=== PATIENT | male | born 1995 | race Caucasian/White ===

== ENCOUNTER 2016-12-14 01:22 | Observation (INO) | payer BC ==
[2016-12-14 01:22] VITALS: BMI 23.6
[2016-12-14 01:55] VITALS: RESP 18; TEMP 97.8
--- NOTE | 2016-12-14 02:55 | ED PDOC ---
Arrival/HPI - General Chief Complaint: Substance Abuse Time Seen by Provider: 12/14/16 02:05 Historian: Patient - History of Present Illness Narrative History of Present Illness (Text): 12/14/16 02:51 Juan Gordillo is a 21 year old male who was brought in to the emergency department via EMS for public intoxication. Patient admits to alcohol use as well as occasional drug use. Currently patient states he feels fine and wants to rest. Time/Duration: 4-6 hours Symptom Onset: Gradual Symptom Course: Unchanged Severity Level: Mild Activities at Onset: Light Context: Street Past Medical History - Provider Review Nursing Documentation Reviewed: Yes - Infectious Disease Hx of Infectious Diseases: None - Pulmonary Hx Asthma: Yes - Psychiatric Hx Anxiety: Yes Hx Substance Use: Yes - Anesthesia Hx Anesthesia: No - Suicidal Assessment Feels Threatened In Home Enviroment: No Family/Social History - Physician Review Nursing Documentation Reviewed: Yes Family/Social History: No Known Family HX Smoking Status: Heavy Smoker > 10 Cigarettes Daily Hx Alcohol Use: Yes Hx Substance Use: Yes Substance used: Heroin, pot, Benzo Allergies/Home Meds Allergies/Adverse Reactions: Allergies banana Allergy (Verified 09/01/16 13:18) RASH fruits Allergy (Uncoded 09/29/16 16:32) Home Medications: Home Meds Medication Instructions Recorded Confirmed Alprazolam [Xanax] 1 mg PO TID PRN 11/23/14 11/23/14 Fluticasone Propionate [Flovent 1 puff INH PRN PRN 11/23/14 11/23/14 Hfa] Fluticasone/Salmeterol 250/50 1 puff PO DAILY 11/23/14 11/23/14 [Advair Diskus 250/50] QUEtiapine [SEROquel] 50 mg PO HS 11/23/14 11/23/14 ALPRAZolam [Xanax] 1 mg PO TID 09/29/16 09/29/16 Review of Systems - Review of Systems Systems not reviewed;Unavailable: Intoxicated Physical Exam Vital Signs Reviewed: Yes Vital Signs Temp Pulse Resp BP Pulse Ox 12/14/16 06:02 88 18 124/72 98 12/14/16 01:54 97.8 F 106 H 18 129/79 95 Temperature: Afebrile Blood Pressure: Normal Pulse: Tachycardic Respiratory Rate: Normal Appearance: Positive for: Well-Appearing, Non-Toxic, Comfortable Pain Distress: None Mental Status: Positive for: other (Sleeping but easily arousable. ) - Systems Exam Head: Present: Atraumatic, Normocephalic Pupils: Present: PERRL Extroacular Muscles: Present: EOMI Conjunctiva: Present: Normal Neck: Present: Normal Range of Motion. No: MIDLINE TENDERNESS, Paraspinal Tenderness Respiratory/Chest: Present: Clear to Auscultation, Good Air Exchange. No: Respiratory Distress, Accessory Muscle Use Cardiovascular: Present: Regular Rate and Rhythm, Normal S1, S2. No: Murmurs Abdomen: Present: Normal Bowel Sounds. No: Tenderness, Distention, Peritoneal Signs, Rebound, Guarding Upper Extremity: Present: Normal Inspection, Normal ROM, NORMAL PULSES. No: Cyanosis, Edema Lower Extremity: Present: Normal Inspection, NORMAL PULSES, Normal ROM. No: Edema, CALF TENDERNESS, Tenderness, Swelling Neurological: Present: GCS=15, CN II-XII Intact, Speech Normal Skin: Present: Warm, Dry, Normal Color. No: Rashes Psychiatric: Present: Alert, Oriented x 3, Intoxicated Medical Decision Making ED Course and Treatment: 12/14/16 03:00 Impression: A 21 year old male who presents to the emergency department complaining for public intoxication. Progress Notes: ED OBSERVATION Discharge: Yes Date of observation admission: 12/14/16 Time of observation admission: 02:00 - Observation admission statement Patient is being placed in observation because:: public intoxication - Goals of Observation Goals of observation are:: awaiting sobriety. - Progress Note Progress Note: 12/14/16 04:00 Patient sleeping comfortably with stable vitals signs. 12/14/16 05:58 Patient is resting with no new complaints. Vital signs stable. 12/14/16 06:05 Patient is alert oriented X3 and ambulatory with a steady gait in the emergency department. Patient is stable for discharge. - Scribe Statement The provider has reviewed the documentation as recorded by the Sarabjit Guerrero Provider Attestation: All medical record entries made by the Zainaibtom were at my direction and personally dictated by me. I have reviewed the chart and agree that the record accurately reflects my personal performance of the history, physical exam, medical decision making, and the department course for this patient. I have also personally directed, reviewed, and agree with the discharge instructions and disposition. Disposition/Present on Arrival - Present on Arrival Any Indicators Present on Arrival: No History of DVT/PE: No History of Uncontrolled Diabetes: No Urinary Catheter: No History of Decub. Ulcer: No History Surgical Site Infection Following: None - Disposition Have Diagnosis and Disposition been Completed?: Yes Diagnosis: Alcohol abuse Disposition: HOME/ ROUTINE Disposition Time: 06:04 Patient Plan: Discharge Patient Problems: Current Active Problems Problem Status Diagnosed Alcohol abuse Acute Condition: GOOD
[2016-12-14 06:03] VITALS: BP 124/72; PULSE 88; O2SAT 98
== END 2016-12-14 06:03 | disposition home or self-care (01) ==
LOC: ED 01:22 → EROBSV 02:00
PROVIDERS: ADMIT Emergency Medicine; ATTEND Emergency Medicine
DX: F10.10 Alcohol abuse, uncomplicated (principal); Y90.9 Presence of alcohol in blood, level not specified
CPT/HCPCS: 99283; G0378

== ENCOUNTER 2017-11-05 09:10 | Inpatient (IN) | payer BC ==
[2017-11-05 09:10] VITALS: BMI 23.6
[2017-11-05] MEDS ORDERED: Naloxone 0.4 mg/ml Inj (Adult) ONE ×2 (09:12→10:50)
[2017-11-05] MEDS ORDERED: Naloxone 0.4 mg/ml Inj (Adult) IVP STA ×4 (09:15→10:41)
--- NOTE | 2017-11-05 09:21 | ED PDOC ---
Arrival/HPI - General Chief Complaint: Altered Mental Status Time Seen by Provider: 11/05/17 09:16 Historian: EMS, Other (Girlfriend) - History of Present Illness Narrative History of Present Illness (Text): 11/05/17 09:16 Patient is a 22 year old male brought in by EMS for possible overdose prior to arrival. Patient's history initially obtained from [facility] personnel and patient' s girlfriend. Patient reportedly "was found" in a parking lot sitting in a parked car unresponsive. Girlfriend states that "earlier in the morning he was fine." The girlfriend states that patient "took 2 pills" and then she noted he was becoming unresponsive in the passenger seat. Girlfriend believes he was recently prescribed Xanax. She states in the past patient used heroin although uncertain if he used it today. HPI and ROS limited due to unresponsive state of patient. 11/05/17 10:36 Time/Duration: Prior to Arrival Symptom Course: Unchanged Activities at Onset: Light Context: Passenger Past Medical History - Provider Review Nursing Documentation Reviewed: Yes - Infectious Disease Hx of Infectious Diseases: None - Pulmonary Hx Asthma: Yes - Psychiatric Hx Anxiety: Yes Hx Depression: Yes Hx Substance Use: Yes - Anesthesia Hx Anesthesia: No Hx Anesthesia Reactions: No Hx Malignant Hyperthermia: No - Suicidal Assessment Feels Threatened In Home Enviroment: No Family/Social History - Physician Review Nursing Documentation Reviewed: Yes Family/Social History: No Known Family HX Smoking Status: Heavy Smoker > 10 Cigarettes Daily Hx Alcohol Use: Yes Hx Substance Use: Yes Substance used: Heroin, pot, Benzo Allergies/Home Meds Allergies/Adverse Reactions: Allergies banana Allergy (Verified 09/01/16 13:18) RASH fruits Allergy (Uncoded 09/29/16 16:32) Home Medications: Home Meds Medication Instructions Recorded Confirmed Alprazolam [Xanax] 1 mg PO TID PRN 11/23/14 11/05/17 QUEtiapine [SEROquel] 50 mg PO HS 11/23/14 11/05/17 ALPRAZolam [Xanax] 1 mg PO TID 09/29/16 11/05/17 Review of Systems - Review of Systems Systems not reviewed;Unavailable: Other (Unresponsive) Physical Exam - Physical Exam Narrative Physical Exam (Text): 11/05/17 10:32 Head: Atraumatic. Normocephalic. Eyes: Pinpoint pupils, reactive. ENT: Mucous membranes are moist and intact. Oropharynx is without edema or erythema. There are increased oral secretions which were clear when suctioned. Neck: Supple. Atraumatic. NO soft tissue swelling. Cardiovascular: Tachycardic. Systolic murmur. Pulmonary/Chest: Rhonchi, slow respirations on initial evaluation. Superfical linear abrasion to chest wall, no crepitus or edema or erythema. Abdominal: Soft and non-distended. There is no tenderness. No rebound, guarding, or rigidity. No organomegaly. Good bowel sounds. Back: No visible trauma. No midline pain. Extremities: No edema. No cyanosis. No clubbing. Full range of motion in all extremities. No calf tenderness. Rectal: no bleeding or melena Skin: Skin is warm and dry. No petechiae. No purpura. No cyanosis. Neurological: On initial exam patient is lethargic, will withdraw to painful stimuli and move all four extremities. Will open eyes to painful stimuli only, not verbal stimuli. Reflexes depressed. Psychiatric: Unresponsive on initial exam. Vital Signs Reviewed: Yes Vital Signs Temp Pulse Resp BP Pulse Ox 11/05/17 11:41 128 H 19 95/60 L 99 11/05/17 10:42 126 H 14 93/61 L 100 11/05/17 10:10 131 H 21 98/71 L 99 11/05/17 09:35 130 H 18 106/63 100 11/05/17 09:10 98.5 F 134 H 20 148/81 100 Temperature: Afebrile Blood Pressure: Normal Pulse: Tachycardic Respiratory Rate: Other (slow respirations) Medical Decision Making ED Course and Treatment: 11/05/17 09:38 Impression: 22 year old male presented to the Emergency department for possible overdose. Plan: -- EKG -- Labs -- Chest X-ray -- Narcan -- Urinalysis -- Reassess and disposition Prior Visits: Notes and results from previous visits were reviewed. Pt was seen in the Emergency department on 12/14/16 for public intoxication and was discharged home. Pt was seen in the Emergency department on 09/01/16 for drug abuse and discharged home after improvement. Progress Notes: Patient seen immediately upon arrival to Emergency department. History obtained from EMS as well as stated girlfriend. Patient received intranasal narcan with some response as per EMS. Patient was reportedly initially found unresponsive and near apneic, had improved respirations and oxygen saturations by report after intranasal narcan given prior to arrival to Emergency department. On initial evaluation in the Emergency department, patient is noted to be unresponsive to painful stimuli, pupils pinpoint. No visible signs of acute trauma. Respiratory rate 10. As there is persistent respiratory distress, patient suctioned, IV narcan 0.8 mg iv given with immediate response, patient sat up, attempted to pull out iv and get out of bed. For patient safety, he was restrained as he was not following commands and patient required further monitoring and evaluation of respiratory status and further treatment for respiratory distress, as well as further evaluation of ams, at this time felt likely due to overdose. 11/05/17 09:39 Patient at 0950 not responding to verbal stimuli, and now can only be aroused with sternal rub. As he has now worsening respiratory status, additional narcan ordered. On oxygen saturations 98%. Case d/w Dr. Khan, glass technologist, accepts admission to ICU. 11/05/17 10:53 Chest X-ray reviewed by radiologist, shows no active pulmonary disease. 11/05/17 10:53 CT of head reviewed by radiologist, shows no acute findings. 11/05/17 11:46 Patient re-evaluated, is arousable with verbal stimuli, is now able to ask questions "where is my girlfriend" and moves all extremities well. Patient with no PMD, have discussed case with oncall physician Dr. Berger who accepts patient to her service. Care turned over to ICU team. Abnormal findings reviewed with patient. Patient requires serial exams on Narcan drip, and close monitoring of respiratory status. Leukocytosis noted but afebrile in ED. Initial CXR reading by radiology reviewed, however will cover patient with antibiotics given period of unresponsiveness noted prior to arrival. - Critical Care Critical Care Minutes: 60 minutes - Lab Interpretations Lab Results: 11/05/17 09:10 11/05/17 09:10 Lab Results 11/05/17 09:10: Alcohol, Quantitative < 10 11/05/17 09:10: Salicylates < 1 L, Acetaminophen < 10.0 L 11/05/17 09:10: PT 10.9, INR 0.95, APTT 26.9 11/05/17 09:10: WBC 15.4 H, RBC 4.91, Hgb 13.7 L, Hct 43.0, MCV 87.6, MCH 27.9, MCHC 31.9, RDW 15.1 H, Plt Count 267, MPV 9.7, Gran % 74.4 H, Lymph % (Auto) 16.9 L, [place] % (Auto) 7.1 H, Eos % (Auto) 1.2 L, Baso % (Auto) 0.4, Gran # 11.49 H, Lymph # (Auto) 2.6, [place] # (Auto) 1.1 H, Eos # (Auto) 0.2, Baso # (Auto ) 0.06 11/05/17 09:10: Sodium 144, Potassium 4.7, Chloride 101, Carbon Dioxide 24, Anion Gap 24 H, BUN 16, Creatinine 2.5 H, Est GFR ( Amer) 39, Est GFR ( Non-Af Amer) 32, Random Glucose 232 H, Calcium 8.6, Total Bilirubin 0.2, AST 43 , ALT 50, Alkaline Phosphatase 79, Lactate Dehydrogenase 697, Total Creatine Kinase 309 H, CK-MB (CK-2) 1.9, CK-MB (CK-2) % Cancelled, Troponin I 0.01, Total Protein 7.6, Albumin 4.4, Globulin 3.3, Albumin/Globulin Ratio 1.3 - RAD Interpretation Radiology Orders: 11/05/17 09:20 CHEST PORTABLE [RAD] Stat Manager Control: Radiologist - EKG Interpretation EKG Interpretation (Text): EKG at 0919 sinus tachycardia rate of 144 Interpreted by ED Physician: Yes Type: 12 lead EKG - Medication Orders Current Medication Orders: Acetaminophen (Tylenol 650mg/20.3ml Solution Ud) 650 mg NG Q6H PRN PRN Reason: Fever >100.4 F Last Admin: 11/06/17 03:00 Dose: 650 mg HARRIS Pain/Vitals Document 11/06/17 03:00 AOM (Rec: 11/06/17 03:11 AOM ADMIN-PC) Pain Reassessment Is This A Pain ReAssessment? No Sleep Is patient sleeping during reassessment? Yes Re-Assess: HARRIS Pain/Vitals Document 11/06/17 04:00 AOM (Rec: 11/06/17 04:26 [id number] Pain Reassessment Is This A Pain ReAssessment? No Sleep Is patient sleeping during reassessment? Yes Albuterol/Ipratropium (Duoneb 3 Mg/0.5 Mg (3 Ml) Ud) 3 ml IH [id number] INDIGO Last Admin: 11/06/17 07:04 Dose: 3 ml Heparin Sodium (Porcine) (Heparin) 5,000 units SC Q8 INDIGO PRN Reason: Protocol Last Admin: 11/06/17 06:07 Dose: 5,000 units Subcutaneous Administrations Document 11/06/17 06:07 AOM (Rec: 11/06/17 06:08 AOM ADMIN-PC) Injection Site MAR Injection Site Left Arm Charges for Administration # of Subcutaneous Administrations 1 Sodium Chloride (Sodium Chloride 0.9%) 1,000 mls @ 125 mls/hr IV .Q8H [facility] Last Admin: 11/06/17 03:45 Dose: 125 mls/hr eMAR Start Stop Document 11/06/17 03:45 AOM (Rec: 11/06/17 04:13 [id number] Intravenous Solution Start Date 11/06/17 Start Time 03:45 End Date 11/06/17 Doxycycline Hyclate 100 mg/ (Sodium Chloride) 100 mls @ 100 mls/hr IVPB Q12 INDIGO PRN Reason: Protocol Propofol (Diprivan) 1,000 mg in 100 mls @ 2.654 mls/hr IV .Q24H PRN; Protocol; 5 MCG/KG/MIN PRN Reason: TITRATE PER MD ORDER Last Titration: 11/06/17 06:52 Dose: 35 mcg/kg/min, 18.575 mls/hr Chow Agitation Sedation Document 11/06/17 06:52 AOM (Rec: 11/06/17 06:53 AOM ADMIN-PC) Chow Agitation Sedation Scale Chow Agitation Sedation Scale Score -2 Light Sedation: briefly awakens with eye contact to voice (<10 sec) Titration Intervention Document 11/06/17 06:52 AOM (Rec: 11/06/17 06:53 AOM ADMIN-PC) Titration Intake Titration Intake 25 Cumulative Intake 25 Cumulative Intake (Rx) 100.9 Waste Amount 0 Container Volume 75 Titration Dosing Titration Dose 35 IV Rate 18.575 Intake/Decrease Increased Cumulative Dose 1009 Vancomycin HCl (Vancomycin 1gm) 1 gm in 250 mls @ 167 mls/hr IVPB Q12H INDIGO PRN Reason: Protocol Last Admin: 11/06/17 08:13 Dose: 167 mls/hr eMAR Start Stop Document 11/06/17 08:13 PHANT (Rec: 11/06/17 08:13 PHANT [id number]) Intravenous Solution Start Date 11/06/17 Start Time 08:13 End Date 11/06/17 End time 09:43 Total Infusion Time 90 Pantoprazole Sodium (Protonix Inj) 40 mg IVP DAILY INDIGO Discontinued Medications Acetaminophen (Tylenol 160mg/5ml Oral Soln) 650 mg NG Q6H PRN PRN Reason: Fever >100.4 F Albuterol/Ipratropium (Duoneb 3 Mg/0.5 Mg (3 Ml) Ud) 3 ml IH STAT STA Stop: 11/05/17 09:35 Last Admin: 11/05/17 10:04 Dose: 3 ml Etomidate (Amidate) 20 mg IVP STAT STA Stop: 11/06/17 01:46 Sodium Chloride (Sodium Chloride 0.9%) 500 mls @ 1,000 mls/hr IV .Q30M STA Stop: 11/05/17 10:03 Last Admin: 11/05/17 10:03 Dose: 1,000 mls/hr eMAR Start Stop Document 11/05/17 10:03 SRE (Rec: 11/05/17 10:03 SRE [id number]) Intravenous Solution Start Date 11/05/17 Start Time 09:35 End Date 11/05/17 End time 10:05 Total Infusion Time 30 Ceftriaxone Sodium (Rocephin 1 Gram Ivpb) 1 gm in 100 mls @ 200 mls/hr IVPB ONCE STA PRN Reason: Protocol Stop: 11/05/17 10:07 Last Admin: 11/05/17 10:04 Dose: 200 mls/hr eMAR Start Stop Document 11/05/17 10:04 SRE (Rec: 11/05/17 10:07 SRE [id number]) Intravenous Solution Start Date 11/05/17 Start Time 09:45 End Date 11/05/17 End time 10:45 Total Infusion Time 60 Sodium Chloride (Sodium Chloride 0.9%) 1,000 mls @ 1,000 mls/hr IV .Q1H STA Stop: 11/05/17 10:50 Last Admin: 11/05/17 10:01 Dose: 1,000 mls/hr eMAR Start Stop Document 11/05/17 10:01 SRE (Rec: 11/05/17 10:03 SRE [id number]) Intravenous Solution Start Date 11/05/17 Start Time 10:00 End Date 11/05/17 End time 11:00 Total Infusion Time 60 Naloxone HCl 2.4 mg/ Sodium (Chloride) 246 mls @ 61.5 mls/hr IV .Q4H ONE PRN Reason: 0.6 MG/HR Stop: 11/05/17 14:56 Naloxone HCl 2.4 mg/ Sodium (Chloride) 250 mls @ 62.5 mls/hr IV .Q4H ONE PRN Reason: 0.6 MG/HR Stop: 11/05/17 14:56 Last Admin: 11/05/17 11:26 Dose: 62.5 mls/hr eMAR Start Stop Document 11/05/17 11:26 SRE (Rec: 11/05/17 11:26 SRE [id number]) Intravenous Solution Start Date 11/05/17 Start Time 11:26 Doxycycline Hyclate 200 mg/ (Sodium Chloride) 100 mls @ 100 mls/hr IVPB ONCE ONE PRN Reason: Protocol Stop: 11/05/17 23:59 Piperacillin Sod/Tazobactam Sod (Zosyn 3.375 In Ns 100ml) 100 mls @ 200 mls/hr IVPB Q6 INDIGO PRN Reason: Protocol Stop: 11/06/17 06:29 Last Admin: 11/06/17 05:51 Dose: 200 mls/hr eMAR Start Stop Document 11/06/17 05:51 AOM (Rec: 11/06/17 05:52 AOM ADMIN-PC) Intravenous Solution Start Date 11/06/17 Start Time 05:51 End Date 11/06/17 End time 06:21 Total Infusion Time 30 Doxycycline Hyclate 200 mg/ (Sodium Chloride) 250 mls @ 100 mls/hr IVPB ONCE ONE PRN Reason: Protocol Stop: 11/06/17 01:29 Last Admin: 11/05/17 23:28 Dose: 100 mls/hr eMAR Start Stop Document 11/05/17 23:28 AOM (Rec: 11/05/17 23:30 AOM ADMIN-PC) Intravenous Solution Start Date 11/05/17 Start Time 23:29 End Date 11/06/17 End time 01:59 Total Infusion Time 150 Vancomycin HCl (Vancomycin 1gm) 1 gm in 250 mls @ 167 mls/hr IVPB STAT STA PRN Reason: Protocol Stop: 11/06/17 03:14 Last Admin: 11/06/17 03:00 Dose: 167 mls/hr eMAR Start Stop Document 11/06/17 03:00 AOM (Rec: 11/06/17 03:07 AOM ADMIN-PC) Intravenous Solution Start Date 11/06/17 Start Time 03:00 End Date 11/06/17 Lorazepam (Ativan) 2 mg IVP ONCE ONE PRN Reason: Protocol Stop: 11/06/17 01:46 Naloxone HCl (Narcan) 0.8 mg IVP STAT STA Stop: 11/05/17 09:16 Last Admin: 11/05/17 09:15 Dose: 0.8 mg IVP Administration Document 11/05/17 09:15 SRE (Rec: 11/05/17 10:00 SRE [id number]) Charges for Administration # of IVP Administrations 1 Naloxone HCl (Narcan) 1 mg IVP STAT STA Stop: 11/05/17 09:54 Last Admin: 11/05/17 10:07 Dose: 1 mg IVP Administration Document 11/05/17 10:07 SRE (Rec: 11/05/17 10:07 SRE [id number]) Charges for Administration # of IVP Administrations 1 Naloxone HCl (Narcan) 2 mg IVP STAT STA Stop: 11/05/17 10:42 Last Admin: 11/05/17 10:55 Dose: 1.3 mg IVP Administration Document 11/05/17 10:55 SRE (Rec: 11/05/17 10:57 SRE [id number]) Charges for Administration # of IVP Administrations 1 Pneumococcal Polyvalent Vaccine (Pneumovax 23 Vaccine) 0.5 ml IM .ONCE ONE Stop: 11/05/17 13:40 Propofol (Diprivan) 50 mg IVP ONCE ONE Stop: 11/06/17 01:31 Last Admin: 11/06/17 01:25 Dose: 50 mg IVP Administration Document 11/06/17 01:25 AOM (Rec: 11/06/17 02:52 AOM ADMIN-PC) Charges for Administration # of IVP Administrations 1 Propofol (Diprivan) 50 mg IVP ONCE ONE Stop: 11/06/17 01:46 Last Admin: 11/06/17 01:25 Dose: 50 mg IVP Administration Document 11/06/17 01:25 AOM (Rec: 11/06/17 02:58 AOM ADMIN-PC) Charges for Administration # of IVP Administrations 1 Quetiapine Fumarate (Seroquel) 50 mg PO HS INDIGO Last Admin: 11/05/17 22:24 Dose: Not Given Non-Admin Reason: Patient Lethargic Behavioural Document 11/05/17 22:24 AOM (Rec: 11/05/17 22:24 AOM ADMIN-PC) Maintenance Maintenance Dose No Nonmedicinal Nonmedicinal Interventions Redirect - Scribe Statement The provider has reviewed the documentation as recorded by the Scribe Debra Mark. All medical record entries made by the Scribe were at my direction and personally dictated by me. I have reviewed the chart and agree that the record accurately reflects my personal performance of the history, physical exam, medical decision making, and the department course for this patient. I have also personally directed, reviewed, and agree with the discharge instructions and disposition. Disposition/Present on Arrival - Present on Arrival Any Indicators Present on Arrival: No History of DVT/PE: No History of Uncontrolled Diabetes: No Urinary Catheter: No History of Decub. Ulcer: No History Surgical Site Infection Following: None - Disposition Have Diagnosis and Disposition been Completed?: Yes Diagnosis: Acute renal failure, Opiate overdose Disposition: HOSPITALIZED Disposition Time: 09:54 Patient Plan: Admission, ICU Patient Problems: Current Active Problems Problem Status Onset Acute renal failure Acute Opiate overdose Acute Condition: CRITICAL
[2017-11-05 09:34] LABS: BASO # 0.06 K/mm3 (0.0-2.0); BASO % 0.4 % (0.0-3.0); EOS # 0.2 (0.0-0.7); EOS % 1.2 % (1.5-5.0); GRAN # 11.49 (1.4-6.5); GRAN % 74.4 % (50.0-68.0); HEMOGLOBIN 13.7 g/dL (14.0-18.0); LYMPH # 2.6 (1.2-3.4); LYMPH % 16.9 % (22.0-35.0); MEAN CELL VOLUME 87.6 fl (80.0-105.0); MEAN CORPUSCULAR HEMOGLOBIN 27.9 pg (25.0-35.0); MEAN CORPUSCULAR HGB CONC 31.9 g/dl (31.0-37.0); MEAN PLATELET VOLUME 9.7 fl (7.0-11.0); MONO # 1.1 (0.1-0.6); MONO % 7.1 % (1.0-6.0); RBC 4.91 10^6/uL (3.5-6.1); RED CELL DISTRIBUTION WIDTH 15.1 % (11.5-14.5); WHITE BLOOD COUNT 15.4 10^3/ul (4.5-11.0)
[2017-11-05] MEDS ORDERED: Albuterol-Ipratrop 3 mg / 0.5 (3 ml) UD IH STA (09:34)
[2017-11-05] MEDS ORDERED: Sodium Chloride 0.9% 500 ML IV STA (09:34)
[2017-11-05] MEDS ORDERED: cefTRIAXone 1 gm 1 GM/100 ML BAG IVPB STA (09:38)
--- NOTE | 2017-11-05 09:39 | RAD ---
HISTORY: overdose COMPARISON: No prior. FINDINGS: LUNGS: No active pulmonary disease. PLEURA: No significant pleural effusion identified, no pneumothorax apparent. CARDIOVASCULAR: Normal. OSSEOUS STRUCTURES: No significant abnormalities. VISUALIZED UPPER ABDOMEN: Normal. OTHER FINDINGS: None. IMPRESSION: No active disease.
[2017-11-05 09:42] LABS: ACETAMINOPHEN < 10.0 ug/ml (10.0-20.0); ALB/GLOB RATIO 1.3 (1.1-1.8); ALBUMIN 4.4 g/dL (3.0-4.8); CALCIUM 8.6 mg/dL (8.4-10.5); SALICYLATE < 1 mg/dL (2.0-20.0)
[2017-11-05 09:46] LABS: INR 0.95 (0.93-1.08); PARTIAL THROMBOPLASTIN TIME 26.9 Seconds (25.1-36.5); PROTHROMBIN TIME 10.9 SECONDS (9.4-12.5)
[2017-11-05] MEDS ORDERED: Sodium Chloride 0.9% 1,000 ML IV STA (09:51)
[2017-11-05 09:53] LABS: TROPONIN I 0.01 ng/mL
[2017-11-05 09:58] LABS: CK-MB 1.9 ng/mL (0.0-3.6)
[2017-11-05 10:17] LABS: URINE BILIRUBIN NEGATIVE (NEGATIVE); URINE BLOOD SMALL (NEGATIVE); URINE GLUCOSE (UA) NEGATIVE (NEGATIVE); URINE LEUKOCYTE ESTERASE NEGATIVE Leu/uL (NEGATIVE); URINE NITRATE NEGATIVE (NEGATIVE); URINE PROTEIN 100 mg/dL (<30 mg/dL); URINE UROBILINOGEN 0.2 E.U./dL (<1 E.U./dL)
[2017-11-05 10:23] LABS: URINE APPEARANCE CLEAR (CLEAR); URINE COLOR YELLOW (YELLOW)
[2017-11-05 10:29] LABS: URINE BACTERIA MANY (NEG); URINE EPITHELIAL CELLS 0 - 2 /hpf (0-5); URINE FINE GRANULAR CAST 0 - 2 /hpf (0-2)
[2017-11-05 10:30] LABS: URINE AMORPHOUS SEDIMENT FEW; URINE HYALINE CAST 0 - 2 /hpf
[2017-11-05 10:34] LABS: BARBITURATES, UR NEGATIVE (NEGATIVE); BENZODIAZEPINES, UR POSITIVE (NEGATIVE); OPIATES, UR POSITIVE (NEGATIVE); PHENCYCLIDINE, UR NEGATIVE (NEGATIVE)
--- NOTE | 2017-11-05 10:51 | CT ---
PROCEDURE: CT HEAD WITHOUT CONTRAST. HISTORY: ams COMPARISON: 11/23/2014 CT TECHNIQUE: Axial computed tomography images were obtained through the head/brain without intravenous contrast. Radiation dose: Total exam DLP = 966 mGy-cm. This CT exam was performed using one or more of the following dose reduction techniques: Automated exposure control, adjustment of the mA and/or kV according to patient size, and/or use of iterative reconstruction technique. FINDINGS: HEMORRHAGE: No intracranial hemorrhage. BRAIN: No mass effect or edema. No atrophy or chronic microvascular ischemic changes. VENTRICLES: Unremarkable. No hydrocephalus. CALVARIUM: Unremarkable. PARANASAL SINUSES: Unremarkable as visualized. No significant inflammatory changes. MASTOID AIR CELLS: Unremarkable as visualized. No inflammatory changes. OTHER FINDINGS: None. IMPRESSION: No acute findings
[2017-11-05] MEDS ORDERED: Naloxone 2.4 MG in Sodium Chloride 0.9% 240 ML IV ONE (10:57)
[2017-11-05] MEDS ORDERED: Naloxone 2.4 MG in Sodium Chloride 0.9% 244 ML IV ONE (11:08)
[2017-11-05] MEDS ORDERED: Pneumococcal 23-Valent Vaccine IM ONE (13:39)
[2017-11-05] MEDS ORDERED: Influenza Vaccine 60 mcg/0.5 mL SYR (4YR UP) IM ONE (13:39)
[2017-11-05 14:28] LABS: BASO # 0.03 K/mm3 (0.0-2.0); BASO % 0.2 % (0.0-3.0); EOS % 0.1 % (1.5-5.0); GRAN # 13.91 (1.4-6.5); GRAN % 79.8 % (50.0-68.0); HEMOGLOBIN 12.5 g/dL (14.0-18.0); LYMPH # 1.7 (1.2-3.4); LYMPH % 9.7 % (22.0-35.0); MEAN CELL VOLUME 86.5 fl (80.0-105.0); MEAN CORPUSCULAR HEMOGLOBIN 27.2 pg (25.0-35.0); MEAN CORPUSCULAR HGB CONC 31.5 g/dl (31.0-37.0); MEAN PLATELET VOLUME 9.7 fl (7.0-11.0); MONO # 1.8 (0.1-0.6); MONO % 10.2 % (1.0-6.0); RBC 4.59 10^6/uL (3.5-6.1); RED CELL DISTRIBUTION WIDTH 15.2 % (11.5-14.5); WHITE BLOOD COUNT 17.4 10^3/ul (4.5-11.0)
[2017-11-05 14:47] LABS: ALB/GLOB RATIO 1.3 (1.1-1.8); ALBUMIN 3.8 g/dL (3.0-4.8); ALT/SGPT 55 U/L (7-56); AST/SGOT 70 U/L (17-59); BLOOD UREA NITROGEN 16 mg/dL (7-21); GFR AFRICAN-AMERICAN > 60; GFR NON-AFRICAN AMERICAN > 60
--- NOTE | 2017-11-05 16:40 | CARD ---
APPROVED REPORT EKG Measurement Heart [id number] <Conclusion> Sinus tachycardia Otherwise normal ECG
[2017-11-05] MEDS: Sodium Chloride 0.9% 1,000 ML IV SCH (19:45)
[2017-11-05] MEDS: Albuterol-Ipratrop 3 mg / 0.5 (3 ml) UD IH SCH (19:52)
[2017-11-05] MEDS ORDERED: SODIUM CHLORIDE 0.9% IVPB ONE (23:00)
[2017-11-05] MEDS ORDERED: DOXYCYCLINE HYCLATE IVPB ONE (23:00)
[2017-11-05 23:03] LABS: ARTERIAL BLOOD GAS HCO3 29.3 mmol/L (21-28); ARTERIAL BLOOD GAS HEMOGLOBIN 12.7 g/dL (11.7-17.4); ARTERIAL BLOOD GAS O2 CAPACITY 17.4 mL/dl (16-24); ARTERIAL BLOOD GAS O2 CONTENT 16.3 ML/dl (15-23); ARTERIAL BLOOD GAS O2 SAT 93.7 % (95-98); ARTERIAL BLOOD GAS PCO2 61 mm/Hg (35-45); ARTERIAL BLOOD GAS PH 7.29 (7.35-7.45); ARTERIAL BLOOD GAS TCO2 31.2 mmol.L (22-28)
[2017-11-05 23:17] LABS: MAGNESIUM 2.1 mg/dL (1.7-2.2)
[2017-11-06] MEDS: Piperacillin/Tazobact 3.375 gm 100 ML IVPB SCH ×2 (00:05→05:51)
--- NOTE | 2017-11-06 00:37 | CON ---
DATE: 11/05/2017 DRILLING CONTRACTOR CONSULTATION NOTE REQUESTING PHYSICIAN: Dr. Berger. 11/05/2017 CHIEF COMPLAINT: Patient presented to the emergency room with altered mental status, basically unresponsive. HISTORY OF PRESENT ILLNESS: Mr. Gordillo is a 22-year-old male who was found by EMS; note that the girlfriend had called EMS when she noted that the patient in the car, in the passenger seat had taken some pills and now was unresponsive. States that the patient has a history of taking Xanax as well as has a past history of heroin use. Once arriving to the emergency room, it was noticed that the patient is unresponsive. He was given Narcan. Did have some response, but required several doses of increasing strength to maintain the ability to be aroused with a painful stimuli. Patient is at present on Narcan drip and he is arousable with touch and spoken word. No nauseousness or vomiting. No complaints of pain. No respiratory distress. No fever or chills at this time. The patient has been admitted to the Intensive Care Unit. PAST MEDICAL HISTORY: Is that the patient has a history of drug abuse and he is a smoker and he does have history of EtOH abuse as well. REVIEW OF SYSTEMS: Difficult to assess because the patient even though arousable is still a little lethargic and a little difficult to communicate with. FAMILY HISTORY: Noncontributory. SOCIAL HISTORY: As stated above. Patient has a history of drug abuse, alcohol abuse and he does smoke cigarettes. PHYSICAL EXAMINATION: VITAL SIGNS: His temperature is 98.5, his pulse is 122, respirations of 14 and BP is 110/59. SKIN: Warm and dry. HEENT: Head is atraumatic, normocephalic. Eyes, reactive to light. Ear, nose and throat seemed to be within normal limits. NECK: Supple. No JVD. No thyroid enlargement. No lymph nodes. HEART: Has regular rate and rhythm. Normal S1, S2, but tachycardic. LUNGS: His lungs reveal good breath sounds bilaterally. ABDOMEN: Soft. Decreased bowel sounds. GENITALIA AND RECTAL: Deferred. MUSCULOSKELETAL: No joint deformities. EXTREMITIES: Reveal no edema. NEUROLOGIC: Patient is lethargic, but arousable and is on Narcan drip at this time. LABORATORY DATA: As far as his laboratories, he has a white count of 15.4, hemoglobin of 13.7, hematocrit 43.0 with platelets of 267,000. Sodium is 144, potassium 4.7, chloride 101, CO2 of 24 with a BUN of 16, creatinine of 2.5 and glucose of 232. Note that the drug screen was positive for benzos, opioids as well as marijuana. His chest x-ray reveals no infiltrates and CT of the head reveals no active disease. IMPRESSION: As far as my impression, this patient presents with drug overdose and unresponsive. He has increased leukocytosis, we must rule out infection. There may be a component of aspiration since the patient presents unconscious. The patient also has renal insufficiency. PLAN: As far as our plan, we will continue with Narcan drip, continue with IV fluids. Patient will get repeat labs and we will correct as needed. Patient has been started on Rocephin for possible aspiration and was given the flu vaccine. We will continue to follow the patient closely hemodynamically and make sure that his respiratory as well as arousal response is appropriate. We will continue to treat aggressively along with the other consultants and the primary care doctor. Felix Khan MD
[2017-11-06] MEDS ORDERED: Etomidate 20 mg/10ml Inj IV ONE (01:07)
[2017-11-06] MEDS ORDERED: Propofol 10 mg/ml 1,000 MG/100 ML VIAL ONE (01:10)
[2017-11-06] MEDS ORDERED: Propofol 10 mg/ml Inj (20 ML) IVP ONE ×2 (01:30→01:45)
[2017-11-06] MEDS ORDERED: Etomidate 20 mg/10ml Inj IVP STA (01:45)
[2017-11-06] MEDS ORDERED: Vancomycin 1gm in NS 250ml 1 GM/250 ML BAG IVPB STA (01:45)
[2017-11-06] MEDS ORDERED: Acetaminophen 160 mg/5 ml UD NG PRN (01:45)
[2017-11-06] MEDS: Propofol 10 mg/ml 1,000 MG/100 ML VIAL IV PRN ×5 (01:45→20:20)
[2017-11-06] MEDS: Albuterol-Ipratrop 3 mg / 0.5 (3 ml) UD IH SCH ×4 (02:08→20:30)
[2017-11-06 02:13] LABS: BASO # 0.04 K/mm3 (0.0-2.0); BASO % 0.3 % (0.0-3.0); EOS # 0.2 (0.0-0.7); EOS % 1.7 % (1.5-5.0); GRAN # 9.32 (1.4-6.5); GRAN % 70.8 % (50.0-68.0); HEMOGLOBIN 11.7 g/dL (14.0-18.0); LYMPH # 2.4 (1.2-3.4); LYMPH % 18.2 % (22.0-35.0); MEAN CELL VOLUME 86.4 fl (80.0-105.0); MEAN CORPUSCULAR HEMOGLOBIN 27.5 pg (25.0-35.0); MEAN CORPUSCULAR HGB CONC 31.8 g/dl (31.0-37.0); MEAN PLATELET VOLUME 9.3 fl (7.0-11.0); MONO # 1.2 (0.1-0.6); RBC 4.26 10^6/uL (3.5-6.1); RED CELL DISTRIBUTION WIDTH 15.1 % (11.5-14.5); WHITE BLOOD COUNT 13.2 10^3/ul (4.5-11.0)
[2017-11-06 02:22] LABS: ALB/GLOB RATIO 1.2 (1.1-1.8); ALBUMIN 3.3 g/dL (3.0-4.8); ALT/SGPT 71 U/L (7-56); AST/SGOT 124 U/L (17-59); BLOOD UREA NITROGEN 12 mg/dL (7-21); CALCIUM 7.7 mg/dL (8.4-10.5); GFR AFRICAN-AMERICAN > 60; GFR NON-AFRICAN AMERICAN > 60; MAGNESIUM 1.9 mg/dL (1.7-2.2)
--- NOTE | 2017-11-06 02:39 | PCM.PROC ---
<Nilson Ceja - Last Filed: 11/06/17 02:37> Procedures Attestation:: I certify that I have explained the specified Operation(s) or Procedure(s), risks, benefits and reasonable alternatives to the Patient and/or other person responsible. The opportunity was given to ask questions and all questions answered - Intubation Time Out Performed: Yes Sedative: Etomidate (20mg), Other (Propofol 50mg x2 (once before intubation, once after)) Laryngoscope: Kirit ET Tube Size: 8.0 ET Tube Secured at Depth: 24cm ET Tube Secured Locarion: Lips ET Tube Placement Confirmation: Visualized Passing Through Cords, Breath Sounds Equal Bilaterally, No Breath Sounds Over Epigastrum, Confirmation w/Capnometry Patient Tolerated Procedure: Well Procedure Immediate Complications: None Additional comments: Placement confirmed with CXR OGT placed additionally after ET tube in place Intubation performed by Dr. Ambriz <Kamlesh Ambriz - Last Filed: 11/06/17 07:31> Attending/Attestation - Attestation I have personally seen and examined this patient.: Yes I have fully participated in the care of the patient.: Yes I have reviewed all pertinent clinical information, including history, physical exam and plan: Yes Notes (Text): Patient intubated as he was needing 100% fio2, still lethargic, hr in 140's sinus, CXR confirmed b/l infiltrates, it was felt patient will not clear his secretions, due to lethargy and confusion, cords visualized, during intubation, Mac 4 blade used, tube size 8, placement confirmed by Co2 detector, on CXR tip above jefe, tube was secured 24 at teeth.
[2017-11-06 02:47] VITALS: RESP 15
[2017-11-06] MEDS: Acetaminophen 650mg/20.3ml solution UD NG PRN ×2 (03:00→17:26)
[2017-11-06 03:36] LABS: ARTERIAL BLOOD GAS HCO3 24.3 mmol/L (21-28); ARTERIAL BLOOD GAS HEMOGLOBIN 10.2 g/dL (11.7-17.4); ARTERIAL BLOOD GAS O2 CAPACITY 14.4 mL/dl (16-24); ARTERIAL BLOOD GAS O2 CONTENT 14.3 ML/dl (15-23); ARTERIAL BLOOD GAS O2 SAT 99.3 % (95-98); ARTERIAL BLOOD GAS PCO2 43 mm/Hg (35-45); ARTERIAL BLOOD GAS PH 7.36 (7.35-7.45); ARTERIAL BLOOD GAS TCO2 25.6 mmol.L (22-28)
[2017-11-06] MEDS: Sodium Chloride 0.9% 1,000 ML IV SCH ×3 (03:45→20:00)
[2017-11-06] MEDS: Vancomycin 1gm in NS 250ml 1 GM/250 ML BAG IVPB SCH ×2 (08:13→19:43)
--- NOTE | 2017-11-06 08:47 | RAD ---
HISTORY: assess for pneumonia, hypoxic on non-rebreather COMPARISON: 11/05/2017 earlier study FINDINGS: LUNGS: Increasing perihilar infiltrates are seen. The findings are most consistent with CHF PLEURA: No significant pleural effusion identified, no pneumothorax apparent. CARDIOVASCULAR: Normal. OSSEOUS STRUCTURES: No significant abnormalities. VISUALIZED UPPER ABDOMEN: Normal. OTHER FINDINGS: None. IMPRESSION: Increasing perihilar infiltrates. Findings are most consistent with CHF. Pneumonia is possible
--- NOTE | 2017-11-06 08:50 | RAD ---
HISTORY: /tube placement COMPARISON: 11/05/2017 FINDINGS: LUNGS: There is increasing pulmonary edema. The endotracheal and nasogastric tubes are in satisfactory position PLEURA: No significant pleural effusion identified, no pneumothorax apparent. CARDIOVASCULAR: Normal. OSSEOUS STRUCTURES: No significant abnormalities. VISUALIZED UPPER ABDOMEN: Normal. OTHER FINDINGS: None. IMPRESSION: There is increasing pulmonary edema. The endotracheal and nasogastric tubes are in satisfactory position
[2017-11-06] MEDS ORDERED: cefTRIAXone 1 gm 1 GM/100 ML BAG IVPB SCH ×2 (10:00)
[2017-11-06] MEDS: Cefepime IV 2 gm in NS 2 GM/100 ML BAG IVPB SCH ×3 (12:04→21:30)
--- NOTE | 2017-11-06 15:56 | CP.PCM.CON ---
History of Present Illness - History of Present Illness History of Present Illness: 22 year old male with PMH of substance abuse, anxiety, depression, asthma, was brought in to [facility] after the patient was found to be sitting in a parked car, unresponsive. In the ED, the patient was noted to be obtunded and patient was intubated and put on the ventilator. He is now in the ICU for closer observation. Patient developed fevers during this admission and patient is noted to have leukocytosis. Infectious Diseases consult is requested to further evaluate and manage. Review of Systems - Review of Systems Systems not reviewed;Unavailable: Intubated Past Patient History - Infectious Disease Hx of Infectious Diseases: None - Past Social History Smoking Status: Heavy Smoker > 10 Cigarettes Daily - PULMONARY Hx Asthma: Yes - MUSCULOSKELETAL/RHEUMATOLOGICAL Hx Falls: No - PSYCHIATRIC Hx Anxiety: Yes Hx Depression: Yes Hx Substance Use: Yes - SURGICAL HISTORY Hx Surgeries: No - ANESTHESIA Hx Anesthesia: No Hx Anesthesia Reactions: No Hx Malignant Hyperthermia: No Meds Allergies/Adverse Reactions: Allergies Allergy/AdvReac Type Severity Reaction Status Date / Time banana Allergy RASH Verified 09/01/16 13:18 fruits Allergy Uncoded 09/29/16 16:32 - Medications Medications: Current Medications Acetaminophen (Tylenol 650mg/20.3ml Solution Ud) 650 mg NG Q6H PRN PRN Reason: Fever >100.4 F Last Admin: 11/06/17 03:00 Dose: 650 mg Albuterol/Ipratropium (Duoneb 3 Mg/0.5 Mg (3 Ml) Ud) 3 ml IH [id number] [facility] Last Admin: 11/06/17 07:04 Dose: 3 ml Heparin Sodium (Porcine) (Heparin) 5,000 units SC Q8 INDIGO PRN Reason: Protocol Last Admin: 11/06/17 06:07 Dose: 5,000 units Sodium Chloride (Sodium Chloride 0.9%) 1,000 mls @ 125 mls/hr IV .Q8H [facility] Last Admin: 11/06/17 03:45 Dose: 125 mls/hr Doxycycline Hyclate 100 mg/ (Sodium Chloride) 100 mls @ 100 mls/hr IVPB Q12 INDIGO PRN Reason: Protocol Last Admin: 11/06/17 09:42 Dose: 100 mls/hr Propofol (Diprivan) 1,000 mg in 100 mls @ 2.654 mls/hr IV .Q24H PRN; Protocol; 5 MCG/KG/MIN PRN Reason: TITRATE PER MD ORDER Last Titration: 11/06/17 06:52 Dose: 35 mcg/kg/min, 18.575 mls/hr Vancomycin HCl (Vancomycin 1gm) 1 gm in 250 mls @ 167 mls/hr IVPB Q12H INDIGO PRN Reason: Protocol Last Admin: 11/06/17 08:13 Dose: 167 mls/hr Pantoprazole Sodium (Protonix Inj) 40 mg IVP DAILY [facility] Last Admin: 11/06/17 09:41 Dose: 40 mg Physical Exam - Constitutional Appears: Other (intubated, sedated, on the ventilator) - Head Exam Head Exam: NORMAL INSPECTION - ENT Exam Additional comments: ET tube in place - Respiratory Exam Respiratory Exam: Decreased Breath Sounds - Cardiovascular Exam Cardiovascular Exam: +S1, +S2 - GI/Abdominal Exam GI & Abdominal Exam: Soft. absent: Tenderness Results - Vital Signs Recent Vital Signs: Last Vital Signs Temp 100.2 F H 11/06/17 06:00 Pulse 135 H 11/06/17 06:00 Resp 15 11/06/17 07:03 BP 101/50 L 11/06/17 06:00 Pulse Ox 97 11/06/17 07:03 - Labs Result Diagrams: 11/06/17 02:00 11/06/17 02:00 Labs: Laboratory Results - last 24 hr 11/05/17 11/05/17 11/05/17 10:00 10:00 14:25 WBC 17.4 H RBC 4.59 Hgb 12.5 L Hct 39.7 L MCV 86.5 MCH 27.2 MCHC 31.5 RDW 15.2 H Plt Count 227 MPV 9.7 Gran % 79.8 H Lymph % (Auto) 9.7 L R[place] % (Auto) 10.2 H Eos % (Auto) 0.1 L Baso % (Auto) 0.2 Gran # 13.91 H Lymph # (Auto) 1.7 R[place] # (Auto) 1.8 H Eos # (Auto) 0.0 Baso # (Auto) 0.03 pCO2 pO2 HCO3 ABG pH ABG Total CO2 ABG O2 Saturation ABG O2 Content ABG Base Excess ABG Hemoglobin ABG Carboxyhemoglobin POC ABG HHb (Measured) ABG Methemoglobin ABG O2 Capacity Hgb O2 Saturation FiO2 Sodium Potassium Chloride Carbon Dioxide Anion Gap BUN Creatinine Est GFR ( Amer) Est GFR (Non-Af Amer) Random Glucose Calcium Phosphorus Magnesium Total Bilirubin AST ALT Alkaline Phosphatase Total Protein Albumin Globulin Albumin/Globulin Ratio Urine Color Yellow Urine Appearance Clear Urine pH 6.0 Ur Specific [place] 1.025 Urine Protein 100 H Urine Glucose (UA) Negative Urine Ketones Negative Urine Blood Small H Urine Nitrate Negative Urine Bilirubin Negative Urine Urobilinogen 0.2 Ur Leukocyte Esterase Negative Urine RBC 10 - 15 Urine WBC 1 - 3 Ur Epithelial Cells 0 - 2 Amorphous Sediment Few Urine Bacteria Many Hyaline Casts 0 - 2 Fine Granular Casts 0 - 2 Urine Other Uyeast Urine Opiates Screen Positive H Urine Methadone Screen Negative Ur Barbiturates Screen Negative Ur Phencyclidine Scrn Negative Ur Amphetamines Screen Negative U Benzodiazepines Scrn Positive U Oth Cocaine Metabols Negative U Cannabinoids Screen Positive H 11/05/17 11/05/17 11/05/17 14:25 22:30 22:30 WBC RBC Hgb Hct MCV MCH MCHC RDW Plt Count MPV Gran % Lymph % (Auto) [place] % (Auto) Eos % (Auto) Baso % (Auto) Gran # Lymph # (Auto) [place] # (Auto) Eos # (Auto) Baso # (Auto) pCO2 61 H pO2 59.0 L HCO3 29.3 H ABG pH 7.29 L ABG Total CO2 31.2 H ABG O2 Saturation 93.7 L ABG O2 Content 16.3 ABG Base Excess 1.4 ABG Hemoglobin 12.7 ABG Carboxyhemoglobin 1.6 H POC ABG HHb (Measured) 6.1 H ABG Methemoglobin 1.0 ABG O2 Capacity 17.4 Hgb O2 Saturation 91.3 L FiO2 100.0 Sodium 143 Potassium 5.1 H Chloride 108 H Carbon Dioxide 24 Anion Gap 16 BUN 16 Creatinine 1.4 Est GFR ( Amer) > 60 Est GFR (Non-Af Amer) > 60 Random Glucose 118 H Calcium 8.0 L Phosphorus 3.5 Magnesium 2.1 Total Bilirubin 0.3 AST 70 H D ALT 55 Alkaline Phosphatase 77 Total Protein 6.8 Albumin 3.8 Globulin 3.0 Albumin/Globulin Ratio 1.3 Urine Color Urine Appearance Urine pH Ur Specific [place] Urine Protein Urine Glucose (UA) Urine Ketones Urine Blood Urine Nitrate Urine Bilirubin Urine Urobilinogen Ur Leukocyte Esterase Urine RBC Urine WBC Ur Epithelial Cells Amorphous Sediment Urine Bacteria Hyaline Casts Fine Granular Casts Urine Other Urine Opiates Screen Urine Methadone Screen Ur Barbiturates Screen Ur Phencyclidine Scrn Ur Amphetamines Screen U Benzodiazepines Scrn U Oth Cocaine Metabols U Cannabinoids Screen 11/06/17 11/06/17 11/06/17 02:00 02:00 03:00 WBC 13.2 H D RBC 4.26 Hgb 11.7 L Hct 36.8 L MCV 86.4 MCH 27.5 MCHC 31.8 RDW 15.1 H Plt Count 200 MPV 9.3 Gran % 70.8 H Lymph % (Auto) 18.2 L Ripley % (Auto) 9.0 H Eos % (Auto) 1.7 Baso % (Auto) 0.3 Gran # 9.32 H Lymph # (Auto) 2.4 [place] # (Auto) 1.2 H Eos # (Auto) 0.2 Baso # (Auto) 0.04 pCO2 43 pO2 189.0 H HCO3 24.3 ABG pH 7.36 ABG Total CO2 25.6 ABG O2 Saturation 99.3 H ABG O2 Content 14.3 L ABG Base Excess -1.2 ABG Hemoglobin 10.2 L ABG Carboxyhemoglobin 1.2 POC ABG HHb (Measured) 0.7 ABG Methemoglobin 1.2 ABG O2 Capacity 14.4 L Hgb O2 Saturation 97.0 FiO2 100.0 Sodium 141 Potassium 4.0 Chloride 105 Carbon Dioxide 29 Anion Gap 11 BUN 12 Creatinine 1.0 Est GFR ( Amer) > 60 Est GFR (Non-Af Amer) > 60 Random Glucose 86 Calcium 7.7 L Phosphorus 3.6 Magnesium 1.9 Total Bilirubin 0.6 AST 124 H D ALT 71 H Alkaline Phosphatase 63 Total Protein 6.1 Albumin 3.3 Globulin 2.8 Albumin/Globulin Ratio 1.2 Urine Color Urine Appearance Urine pH Ur Specific [place] Urine Protein Urine Glucose (UA) Urine Ketones Urine Blood Urine Nitrate Urine Bilirubin Urine Urobilinogen Ur Leukocyte Esterase Urine RBC Urine WBC Ur Epithelial Cells Amorphous Sediment Urine Bacteria Hyaline Casts Fine Granular Casts Urine Other Urine Opiates Screen Urine Methadone Screen Ur Barbiturates Screen Ur Phencyclidine Scrn Ur Amphetamines Screen U Benzodiazepines Scrn U Oth Cocaine Metabols U Cannabinoids Screen Assessment & Plan - Assessment and Plan (Free Text) Plan: Assessment Systemic Inflammatory Response Syndrome, consider due to acute stress reaction from acute substance use, now with VDRF, R/O sepsis acute pulmonary edema substance abuse anxiety depression asthma Plan Reviewed CXR which shows pulmonary edema; follow up blood, urine cx, PCT, rapid Influenza test started patient on Vancomycin and Cefepime follow up rapid HIV test will monitor clinically
--- NOTE | 2017-11-06 21:56 | HP ---
DATE OF EXAM: 11/05/2017 Patient was seen and examined at the bedside on 11/05/2017. CHIEF COMPLAINT: Altered mental status. HISTORY OF PRESENT ILLNESS: Mr. Juan Gordillo is a 22-year-old male brought by EMS for possibly overdose prior to arrival. Patient's history initially obtained from , personal, and patient's girlfriend. Patient reportedly was found in the parking lot sitting in the parked car, unresponsive. Girlfriend stated that earlier in the morning, he was fine. The girlfriend states that the patient took two pills and then he noticed he was becoming unresponsive , girlfriend believed he was recently prescribed Xanax. She states that in the past, patient used heroin, although uncertain if he used it today. I saw patient in the ER getting Narcan; opening eyes upon receiving Narcan and then going back to sedation again. PAST MEDICAL HISTORY: Asthma, anxiety, depression, history of substance abuse. FAMILY HISTORY: Father and mother noncontributory. HABITS: Smoking: Heavy smoking. Alcohol: He has substance abuse. He has heroin, pot, and benzo. ALLERGIES: PATIENT IS ALLERGIC WITH BANANA FRUIT. HOME MEDICATIONS: Xanax, Seroquel. REVIEW OF SYSTEMS: Cannot done because patient was unresponsive while seen in ER. PHYSICAL EXAMINATION: VITAL SIGNS: Temperature 98.5, pulse 134, respiratory rate 20, blood pressure 140/81, pulse oximetry 100. HEENT: Head normocephalic, atraumatic. Eyes closed, pinpoint, pupils are reactive. Nose patent. Mucous membranes moist. Oropharynx is without edema or erythema. There was increased oral section, which was clear when suctioned. NECK: Supple, atraumatic. HEART: S1, S2 positive. Tachycardia, systolic murmur. LUNGS: Clear to auscultation. ABDOMEN: Soft. Nontender. No organomegaly. EXTREMITIES: No edema. No cyanosis. NEUROLOGIC: Patient is sleepy, sedative at this time and I cannot do a complete neurological examination. LABORATORY DATA: White blood cells 15.4, hemoglobin 13.7, hematocrit 43.0, platelets 267. Sodium 144, potassium 4.7, BUN 16, creatinine 2.5, glucose 232. ASSESSMENT AND PLAN: Mr. Juan Gordillo is a 22-year-old male with leukocytosis, anemia, hyperglycemia. Did CAT scan of the head, did chest x-ray, admitted to the emergency room, history of drug abuse, heavy smoking, ethanol abuse, he was found unresponsive, may be he has aspiration, renal insufficiency. We will continue Narcan drip. Continue IV fluid. Repeat laboratories. Discussion done with ER physician. Possible aspiration. Got flu vaccination. We will observe patient hemodynamically and we will continue assessing respiration of the patient. Gastrointestinal and deep venous thrombosis. Repeat labs. We will follow up. Mtizi Berger MD MTDKrista
[2017-11-07] MEDS: Propofol 10 mg/ml 1,000 MG/100 ML VIAL IV PRN ×6 (00:37→20:18)
[2017-11-07] MEDS: Albuterol-Ipratrop 3 mg / 0.5 (3 ml) UD IH SCH ×4 (01:40→20:00)
[2017-11-07] MEDS: Acetaminophen 650mg/20.3ml solution UD NG PRN ×2 (02:36→17:54)
[2017-11-07 02:46] LABS: HEMOGLOBIN 12.9 g/dL (14.0-18.0); MEAN CELL VOLUME 86.1 fl (80.0-105.0); MEAN CORPUSCULAR HEMOGLOBIN 27.6 pg (25.0-35.0); MEAN CORPUSCULAR HGB CONC 32.1 g/dl (31.0-37.0); MEAN PLATELET VOLUME 9.8 fl (7.0-11.0); RBC 4.67 10^6/uL (3.5-6.1); RED CELL DISTRIBUTION WIDTH 14.8 % (11.5-14.5); WHITE BLOOD COUNT 11.2 10^3/ul (4.5-11.0)
--- NOTE | 2017-11-07 02:51 | PN ---
DATE: SUBJECTIVE: The patient is 22-year-old male. The patient is seen and examined at the bedside, looking comfortable, still intubated. Mother and girlfriend were sitting on the bed. Because the patient is intubated, cannot get review of systems, but the patient has fever, closed eyes. PHYSICAL EXAMINATION: VITAL SIGNS: Temperature 102.7 and 101.3, pulse 130, blood pressure 97/62, respiratory rate 20. HEENT: Head, normocephalic and atraumatic. Eyes closed. Nose patent. Mucous membranes moist. NECK: Supple. No carotid bruit, JVD, or thyromegaly. CHEST: Bilaterally symmetrical. HEART: S1, S2 positive. LUNGS: Clear to auscultation. ABDOMEN: Soft. Bowel sounds present. No organomegaly. EXTREMITIES: No edema, no cyanosis. NEUROLOGIC: The patient is intubated, cannot do complete neurological examination. MEDICATIONS: Diprivan, doxycycline, heparin, Maxipime, Protonix, NS, Tylenol, vancomycin. LABORATORY DATA: White blood cells on admission was 15.4, now it is 13.2, hemoglobin 11.7, hematocrit 36.8, platelets 200. Sodium 141, potassium 4.0, BUN 12, creatinine 1.0, calcium 7.7, AST 124. ASSESSMENT AND PLAN: Mr. Juan Gordillo is a 22-year-old male with leukocytosis, improving; anemia; hypocalcemia; abnormal liver function test; proteinuria; hematuria; has positive opiates, benzodiazepine and cannabinoid in his system. Influenza type A and B is negative. Urine Legionella pneumophila antigen is negative. The patient is intubated. Seen by Dr. Rah Douglas, Infectious Disease. He has systemic inflammatory response syndrome, consider due to acute stress reaction from acute substance abuse. Now with ventilator-dependent respiratory failure rule out sepsis, acute pulmonary edema, substance abuse, anxiety, depression, asthma. Review of chest x-ray shows pulmonary edema. Follow up blood culture, urine culture. Rapid influenza test is negative. Start the patient on vancomycin and cefepime. Follow up rapid human immunodeficiency virus test. We will monitor clinically. Length of time discussion done with the patient's mother, girlfriend and the patient's nurse. Chest x-ray reviewed by me. CAT scan of the head reviewed by me. The patient is seen by Dr. Felix Khan, Pier Worker. The patient has a history of substance abuse, smoking and drinking. Maybe the patient has aspiration. We will continue Narcan, continue IV fluid, still intubated, getting antibiotics. Gastrointestinal and deep venous thrombosis prophylaxes. Repeat labs. We will follow up. Mitzi Berger MD
[2017-11-07 03:34] LABS: ALBUMIN 3.4 g/dL (3.0-4.8); ALT/SGPT 63 U/L (7-56); AST/SGOT 95 U/L (17-59); BLOOD UREA NITROGEN 7 mg/dL (7-21); CALCIUM 8.6 mg/dL (8.4-10.5); GFR AFRICAN-AMERICAN > 60; GFR NON-AFRICAN AMERICAN > 60
--- NOTE | 2017-11-07 04:30 | CON ---
DATE: 11/06/2017 REFERRING PHYSICIAN: Mitzi Berger MD REASON FOR CONSULTATION: Drug overdose, respiratory failure, probably of aspiration pneumonia. HISTORY OF PRESENT ILLNESS: This is a 22-year-old young man without any significant past medical history, brought in by EMS with change in mental status. Apparently the patient was found in his car unresponsive. According to girlfriend, the patient took some kind of sedatives. He was admitted to intensive care unit, overnight deteriorated, had a fever up to 102, went into respiratory distress, had to be intubated, placed on antibiotics. Presently sedated, intubated. Has some secretion. No hemoptysis, no vomiting, no hematuria, no diarrhea, no leg swelling reported. PAST MEDICAL HISTORY: Significant for substance abuse including heroin, pot and benzodiazepine. Also there is some history of depression and anxiety disorder. There is no cardiovascular disease in the past. ALLERGIES: BANANA AND FRUITS. FAMILY HISTORY: No significant cardiopulmonary disease reported. SOCIAL HISTORY: He is a smoker. Does drink alcohol and been using substance. MEDICATIONS: At present he is on Diprivan, doxycycline 100 mg twice a day, DuoNeb q.6h., heparin 5000 units subcu q.8 hours, cefepime 2 g IV daily, Protonix 40 mg daily, IV fluid normal saline at 25 mL/hour, Tylenol p.r.n., vancomycin 1 g IV q.12h. REVIEW OF SYSTEMS: He was found unresponsive. Fever up to 102. There is no history of heart disease or lung disease. No hematuria, diarrhea or leg swelling reported. PHYSICAL EXAMINATION: GENERAL: Lying in the bed, intubated and sedated. VITAL SIGNS: T-max 102, temperature 99.7, heart rate is 107, respiratory rate is 20, blood pressure 105/56, pulse ox is 96% on 60% oxygen. HEENT: Moist mucous membranes. NECK: Short thick neck. ET notes no secretion. LUNGS: Has a scattered rhonchi. HEART: S1, S2. ABDOMEN: Soft, nontender, no organomegaly. EXTREMITIES: There is no edema. NEUROLOGIC: Sedated and intubated. LABORATORY DATA: Hemoglobin 11.7, hematocrit 36.8, WBC 13.2, platelets is 200. INR 1.95. PTT 27. ABG show pH 7.36, pCO2 43, O2 189, this is on 100% oxygen on ventilator. Sodium 141, potassium 4.0, chloride 105, bicarbonate 29, BUN 12, creatinine 1.0, glucose is 86, calcium is 7.7, phosphorus 3.6, magnesium is 1.9, AST 124, ALT 71, alk phos is 63, albumin is 3.3. Drug screen is positive for opiates and cannabinoids. Influenza A and B is negative. Microbiology, blood culture, urine culture, there is no growth. IMPRESSION AND PLAN: Drug overdose with respiratory failure on ventilator, probably has aspiration pneumonia, leukocytosis. Continue to titrate FIO2 to pulse ox 92. Keep head elevated at 45 degrees. IV fluids, antibiotics. Gastric prophylaxis, DVT prophylaxis. Follow up ABG, chest x-ray, CBC, CMP in the morning. Case discussed with Dr. Berger, also spoke to key bed installer Dr. Khan. Thank you and we will follow up with you. Serg Clifton MD
[2017-11-07] MEDS: Sodium Chloride 0.9% 1,000 ML IV SCH ×3 (04:35→21:15)
[2017-11-07] MEDS: Cefepime IV 2 gm in NS 2 GM/100 ML BAG IVPB SCH ×3 (05:33→21:11)
--- NOTE | 2017-11-07 06:49 | CP.CCUPN ---
<Juvenal Nina - Last Filed: 11/07/17 10:04> CCU Subjective - Physician Review Subjective (Free Text): Juvenal Nina PGY1 ICU Progress Note for Dr. Fonseca The patient was seen and examined at bedside in ICU. He is being sedated and requiring restraints due to pulling of his tubes and agitation. Per nurse, the patient had an episode of generalized seizure activity overnight, which self resolved, and patient was given a 5cc bolus of Propofol; no further episodes were noted. Patient has also spiked fevers, Tmax 102.7 over the last 24 hrs, however, now he is afebrile. Patient is minimally responsive with b/l UE swelling noted but no skin breaks. Vyas catheter is in place and patient is making urine. CCU Objective - Vital Signs / Intake & Output Vital Signs (Last 4 hours): Vital Signs Temp Pulse BP Pulse Ox 11/07/17 06:00 99.0 F 91 H 99/46 L 99 11/07/17 05:00 99.1 F 98 H 108/50 L 100 11/07/17 04:00 108 H 99/40 L 98 11/07/17 03:00 101.8 F H 117 H 103/55 L 97 Intake and Output (Last 8hrs): Intake & Output 11/06/17 11/06/17 11/07/17 14:59 22:59 06:59 Intake Total 75 1820 2305 Output Total 700 850 Balance 75 1120 1455 Weight 201 lb 206 lb 8 oz Intake: IV 75 1760 2255 Left Antecubital 60 255 Right Hand 1500 1800 Oral 0 0 Tube Feeding 60 Other 50 Output: Gastric Amount 200 200 Stomach 200 200 Urine 500 650 Urethral (Vyas) 500 650 Other: # Bowel Movements 0 0 - Physical Exam Physical Exam Limitations: Positive for: Altered Mental Status Head: Positive for: Atraumatic, Normocephalic Pupils: Positive for: Sluggish, Pinpoint Ears: Positive for: Normal Mouth: Positive for: Moist Mucous Membranes, Other (ETT/OGT in place) Respiratory/Chest: Positive for: Clear to Auscultation, Good Air Exchange, Rhonchi (mild b/l bases). Negative for: Respiratory Distress, Wheezes, Rales Cardiovascular: Positive for: Regular Rate and Rhythm, Normal S1, S2. Negative for: Murmurs Abdomen: Positive for: Normal Bowel Sounds. Negative for: Tenderness, Distention, Guarding Genitourinary Male: Positive for: Other (vyas catheter in place) Back: Positive for: Normal Inspection Upper Extremity: Positive for: Normal Inspection, Edema (1+ b/l hands ) Lower Extremity: Positive for: Normal Inspection. Negative for: Edema Neurological: Negative for: GCS=15, CN II-XII Intact, Speech Normal Skin: Positive for: Warm, Normal Color - Medications Active Medications: Active Medications Generic Name Dose Route Start Last Admin Trade Name Freq PRN Reason Stop Dose Admin Acetaminophen 650 mg 11/06/17 02:36 11/07/17 02:36 Tylenol 650mg/20.3ml Solution Ud NG 650 mg Q6H PRN Administration Fever >100.4 F Albuterol/Ipratropium 3 ml 11/05/17 20:00 11/07/17 01:40 Duoneb 3 Mg/0.5 Mg (3 Ml) Ud IH 3 ml [id number] INDIGO Administration Heparin Sodium (Porcine) 5,000 units 11/05/17 23:00 11/07/17 05:36 Heparin SC 5,000 units Q8 INDIGO Administration Protocol Sodium Chloride 1,000 mls @ 125 mls/hr 11/05/17 19:45 11/07/17 04:35 Sodium Chloride 0.9% IV 125 mls/hr .Q8H INDIGO Administration Doxycycline Hyclate 100 mg/ 100 mls @ 100 mls/hr 11/06/17 10:00 11/06/17 21: 29 Sodium Chloride IVPB 100 mls/hr Q12 INDIGO Administration Protocol Propofol 1,000 mg in 100 mls @ 2.654 mls/hr 11/06/17 01:45 11/07/17 04:31 Diprivan IV 40 mcg/kg/min .Q24H PRN 21.228 mls/hr TITRATE PER MD ORDER Administration Protocol 5 MCG/KG/MIN Vancomycin HCl 1 gm in 250 mls @ 167 mls/hr 11/06/17 07:45 11/06/17 19:43 Vancomycin 1gm IVPB 167 mls/hr Q12H INDIGO Administration Protocol Cefepime HCl 2 gm in 100 mls @ 100 mls/hr 11/06/17 10:15 11/07/17 05:33 Maxipime 2gm IVPB 11/11/17 10:16 100 mls/hr Q8 INDIGO Administration Protocol Pantoprazole Sodium 40 mg 11/06/17 10:00 11/06/17 09:41 Protonix Inj IVP 40 mg DAILY INDIGO Administration - Patient Studies Lab Studies: Microbiology Studies 11/06/17 02:15 Blood Culture - Preliminary Blood NO GROWTH AFTER 24 HOURS 11/06/17 02:00 Blood Culture - Preliminary Blood NO GROWTH AFTER 24 HOURS 11/05/17 10:00 Blood Culture - Preliminary Blood NO GROWTH AFTER 24 HOURS 11/05/17 10:15 Blood Culture - Preliminary Blood NO GROWTH AFTER 24 HOURS 11/05/17 10:00 Urine Culture - Final Urine No Growth (<1,000 CFU/ML) Lab Studies 11/07/17 11/07/17 11/07/17 Range/Units 02:30 02:30 02:30 WBC 11.2 H (4.5-11.0) 10^3/ul RBC 4.67 (3.5-6.1) 10^6/uL Hgb 12.9 L (14.0-18.0) g/dL Hct 40.2 L (42.0-52.0) % MCV 86.1 (80.0-105.0) fl MCH 27.6 (25.0-35.0) pg MCHC 32.1 (31.0-37.0) g/dl RDW 14.8 H (11.5-14.5) % Plt Count 224 (120.0-450.0) 10^3/uL MPV 9.8 (7.0-11.0) fl Sodium 142 (132-148) mmol/L Potassium 3.9 (3.6-5.0) mmol/L Chloride 108 H (98-107) mmol/L Carbon Dioxide 24 (21-33) mmol/L Anion Gap 13 (10-20) BUN 7 (7-21) mg/dL Creatinine 0.9 (0.8-1.5) mg/dl Est GFR ( Amer) > 60 Est GFR (Non-Af Amer) > 60 Random Glucose 80 (70-110) mg/dL Calcium 8.6 (8.4-10.5) mg/dL Phosphorus 2.7 (2.5-4.5) mg/dL Magnesium 2.0 (1.7-2.2) mg/dL Total Bilirubin 0.8 (0.2-1.3) mg/dL AST 95 H D (17-59) U/L ALT 63 H (7-56) U/L Alkaline Phosphatase 69 (38-126) U/L Total Protein 6.6 (5.8-8.3) g/dL Albumin 3.4 (3.0-4.8) g/dL Globulin 3.3 gm/dL Albumin/Globulin Ratio 1.0 L (1.1-1.8) Procalcitonin (0.19-0.49) NG/ML Influenza Typ A,B (EIA) (NEGATIVE) Ur L.pneumophila Ag (NEGATIVE) 11/06/17 11/06/17 11/06/17 Range/Units 17:30 17:30 11:45 WBC (4.5-11.0) 10^3/ul RBC (3.5-6.1) 10^6/uL Hgb (14.0-18.0) g/dL Hct (42.0-52.0) % MCV (80.0-105.0) fl MCH (25.0-35.0) pg MCHC (31.0-37.0) g/dl RDW (11.5-14.5) % Plt Count (120.0-450.0) 10^3/uL MPV (7.0-11.0) fl Sodium (132-148) mmol/L Potassium (3.6-5.0) mmol/L Chloride (98-107) mmol/L Carbon Dioxide (21-33) mmol/L Anion Gap (10-20) BUN (7-21) mg/dL Creatinine (0.8-1.5) mg/dl Est GFR ( Amer) Est GFR (Non-Af Amer) Random Glucose (70-110) mg/dL Calcium (8.4-10.5) mg/dL Phosphorus (2.5-4.5) mg/dL Magnesium (1.7-2.2) mg/dL Total Bilirubin (0.2-1.3) mg/dL AST (17-59) U/L ALT (7-56) U/L Alkaline Phosphatase (38-126) U/L Total Protein (5.8-8.3) g/dL Albumin (3.0-4.8) g/dL Globulin gm/dL Albumin/Globulin Ratio (1.1-1.8) Procalcitonin 3.42 H (0.19-0.49) NG/ML Influenza Typ A,B (EIA) Negative for flu a/b (NEGATIVE) Ur L.pneumophila Ag Negative (NEGATIVE) Laboratory Results - last 24 hr 11/06/17 11/06/17 11/06/17 11:45 17:30 17:30 WBC RBC Hgb Hct MCV MCH MCHC RDW Plt Count MPV Sodium Potassium Chloride Carbon Dioxide Anion Gap BUN Creatinine Est GFR ( Amer) Est GFR (Non-Af Amer) Random Glucose Calcium Phosphorus Magnesium Total Bilirubin AST ALT Alkaline Phosphatase Total Protein Albumin Globulin Albumin/Globulin Ratio Procalcitonin 3.42 H Influenza Typ A,B (EIA) Negative for flu a/b Ur L.pneumophila Ag Negative 11/07/17 11/07/17 11/07/17 02:30 02:30 02:30 WBC 11.2 H RBC 4.67 Hgb 12.9 L Hct 40.2 L MCV 86.1 MCH 27.6 MCHC 32.1 RDW 14.8 H Plt Count 224 MPV 9.8 Sodium 142 Potassium 3.9 Chloride 108 H Carbon Dioxide 24 Anion Gap 13 BUN 7 Creatinine 0.9 Est GFR ( Amer) > 60 Est GFR (Non-Af Amer) > 60 Random Glucose 80 Calcium 8.6 Phosphorus 2.7 Magnesium 2.0 Total Bilirubin 0.8 AST 95 H D ALT 63 H Alkaline Phosphatase 69 Total Protein 6.6 Albumin 3.4 Globulin 3.3 Albumin/Globulin Ratio 1.0 L Procalcitonin Influenza Typ A,B (EIA) Ur L.pneumophila Ag Review of Systems - Review of Systems Systems not reviewed;Unavailable: Intubated Critical Care Progress Note - Ventilator Checklist Head of Bed 30 Degrees: Yes Daily Sedation Vacation: Yes Daily Assessment of Readiness to Wean: Yes Daily Spontaneous Breathing Trial: Yes PUD Prophalyxis: Yes DVT Prophylaxis: Yes Oral Care with Chlorhexidine Gluconate {CHG}: Yes - Vent Settings MODE:: PRVC - Extremities/Vascular Does the Patient have a Central Venous Catheter?: No Does the Patient need a Central Venous Catheter?: No Does the Patient have a Vyas Catheter?: Yes Does the Patient need a Vyas Catheter?: Yes - Prophylaxis GI Prophylaxis GI: PPI - Prophylaxis DVT Prophylaxis DVT: Heparin SQ, SCDs - Nutrition Nutrition: Nutrition Category Date Time Status NPO Diet [DIET] Diets 11/06/17 Breakfast Ordered Assessment/Plan - Assessment and Plan (Free Text) Assessment: 22 yo M with a PMH of polysubstance abuse (Heroin, ETOH, Marijuana), anxiety ( recently started on Xanax), depression (on Seroquel), and asthma who presents to ED after being found in car unresponsive possibly due to opiate overdose. Patient was transferred to ICU and intubated due to hypoxic respiratory failure and altered mental status. UDS + opiates, benzos and marijuana. Severe sepsis was also noted w/ FIDELINA on presentation. Patient is on IV antibiotics empirically for possible consolidation on CXR. blood and urine cultures are negative so far. Overnight, the patient was noted to have fever, w/ Tmax 102.7 and some seizure like activity. Plan: Neuro: Remains on sedation w/ propofol for agitation and pulling of lines/tubes requiring restraints due to agitation EEG ordered for seizure-like activity Neuro consult placed, recs appreciated thiamine, MV and folic acid given hx of ETOH abuse ativan prn for signs of withdrawal/agitation maintain normothermia; tylenol prn CT head was unremarkable daily sedation vacation Cardio: maintain normotension NS @ 125 Echo ordered monitor VS Pulm: duonebs given hx asthma; no wheezing noted on exam CXR shows improved aeration in lungs, and b/l lower lobe pulm edema intubated, on vent PRVC ABG daily; today showed proper ventilation w/ increased PaO2 on 50% FiO2 on Vanc, Doxy and Cefepime for empiric tx of aspiration pneumonia Pulm consulted, recs appreciated daily attempts to wean off vent elevate HOB >30, oral hygiene care, daily sedation vacation, daily attempts to wean off vent GI: tube feeds to be started via OGT GI ppx Renal: FIDELINA improved; patient is making urine vyas catheter in place monitor for electorlyte changes and replete as needed monitor I/O and urine output ID: Severe sepsis on presentation w/ FIDELINA (now resolved) ID consulted, recs appreciated cont Vanc (renally dosed), doxy and cefepime to cover for b/l pneumonia Fevers overnight, however, now is afebrile tylenol PRN fevers PCT elevated @ 3.42 HIV testing pending blood and urine cultures negative so far Heme: BP is stable H/H stable monitor for signs of bleeding DVT ppx Endo: maintain euglycemia Psych: Hx depression and anxiety; was on Seroquel and recently started on Xanax currently off meds restart meds once extubated and more alert Diet: tube feeds Jevity 1.2 via OGT DVT ppx: heparin/SCDs GI ppx: ptx Dispo: sedation vacation daily and attempt to wean off vent daily. currently requiring sedation due to agitation. Patient was seen, examined and discussed with attending, Dr. Raymundo Nina PGY1 Pager # [phone] <Jordan Fonseca - Last Filed: 11/07/17 10:42> CCU Objective - Vital Signs / Intake & Output Vital Signs (Last 4 hours): Vital Signs Temp Pulse Resp BP Pulse Ox 11/07/17 09:02 98.8 F 98 H 15 125/72 99 11/07/17 08:00 98.8 F 84 118/60 100 11/07/17 07:00 98.6 F 84 15 109/65 100 Intake and Output (Last 8hrs): Intake & Output 11/06/17 11/07/17 11/07/17 22:59 06:59 14:59 Intake Total 1820 2305 120 Output Total 700 850 Balance 1120 1455 120 Weight 206 lb 8 oz Intake: IV 1760 2255 120 Left Antecubital 60 255 Right Hand 1500 1800 Oral 0 0 Tube Feeding 60 Other 50 Output: Gastric Amount 200 200 Stomach 200 200 Urine 500 650 Urethral (Vyas) 500 650 Other: # Bowel Movements 0 0 - Medications Active Medications: Active Medications Generic Name Dose Route Start Last Admin Trade Name Freq PRN Reason Stop Dose Admin Acetaminophen 650 mg 11/06/17 02:36 11/07/17 02:36 Tylenol 650mg/20.3ml Solution Ud NG 650 mg Q6H PRN Administration Fever >100.4 F Albuterol/Ipratropium 3 ml 11/05/17 20:00 11/07/17 07:23 Duoneb 3 Mg/0.5 Mg (3 Ml) Ud IH 3 ml [id number] INDIGO Administration Folic Acid 1 mg 11/07/17 10:00 Folic Acid PO DAILY INDIGO Heparin Sodium (Porcine) 5,000 units 11/05/17 23:00 11/07/17 05:36 Heparin SC 5,000 units Q8 INDIGO Administration Protocol Sodium Chloride 1,000 mls @ 125 mls/hr 11/05/17 19:45 11/07/17 04:35 Sodium Chloride 0.9% IV 125 mls/hr .Q8H INDIGO Administration Doxycycline Hyclate 100 mg/ 100 mls @ 100 mls/hr 11/06/17 10:00 11/07/17 09: 19 Sodium Chloride IVPB 100 mls/hr Q12 INDIGO Administration Protocol Propofol 1,000 mg in 100 mls @ 2.654 mls/hr 11/06/17 01:45 11/07/17 09:00 Diprivan IV 45 mcg/kg/min .Q24H PRN 23.882 mls/hr TITRATE PER MD ORDER Titration Protocol 5 MCG/KG/MIN Vancomycin HCl 1 gm in 250 mls @ 167 mls/hr 11/06/17 07:45 11/07/17 07:54 Vancomycin 1gm IVPB 167 mls/hr Q12H INDIGO Administration Protocol Cefepime HCl 2 gm in 100 mls @ 100 mls/hr 11/06/17 10:15 11/07/17 05:33 Maxipime 2gm IVPB 11/11/17 10:16 100 mls/hr Q8 INDIGO Administration Protocol Lorazepam 2 mg 11/07/17 10:10 Ativan IVP Q4 PRN Agitation Protocol Pantoprazole Sodium 40 mg 11/06/17 10:00 11/07/17 09:18 Protonix Inj IVP 40 mg DAILY INDIGO Administration Thiamine HCl 100 mg 11/07/17 10:00 Vitamin B1 Tab PO DAILY [facility] - Patient Studies Lab Studies: Microbiology Studies 11/05/17 10:00 Blood Culture - Preliminary Blood NO GROWTH AFTER 48 HOURS 11/05/17 10:15 Blood Culture - Preliminary Blood NO GROWTH AFTER 48 HOURS 11/06/17 02:15 Blood Culture - Preliminary Blood NO GROWTH AFTER 24 HOURS 11/06/17 02:00 Blood Culture - Preliminary Blood NO GROWTH AFTER 24 HOURS 11/05/17 10:00 Urine Culture - Final Urine No Growth (<1,000 CFU/ML) Lab Studies 03/05/18 03/05/18 03/05/18 Range/Units 07:00 02:30 02:30 WBC (4.5-11.0) 10^3/ul RBC (3.5-6.1) 10^6/uL Hgb (14.0-18.0) g/dL Hct (42.0-52.0) % MCV (80.0-105.0) fl MCH (25.0-35.0) pg MCHC (31.0-37.0) g/dl RDW (11.5-14.5) % Plt Count (120.0-450.0) 10^3/uL MPV (7.0-11.0) fl pCO2 36 (35-45) mm/Hg pO2 160.0 H (80-100) mm/Hg HCO3 23.9 (21-28) mmol/L ABG pH 7.43 (7.35-7.45) ABG Total CO2 25.0 (22-28) mmol.L ABG O2 Saturation 99.2 H (95-98) % ABG O2 Content 14.4 L (15-23) ML/dl ABG Base Excess -0.2 (-2.0-3.0) mmol/L ABG Hemoglobin 10.3 L (11.7-17.4) g/dL ABG Carboxyhemoglobin 1.3 (0.5-1.5) % POC ABG HHb (Measured) 0.8 (0-5) % ABG Methemoglobin 1.0 (0.0-3.0) % ABG O2 Capacity 14.5 L (16-24) mL/dl Hgb O2 Saturation 97.0 (95.0-98.0) % FiO2 50.0 % Sodium 142 (132-148) mmol/L Potassium 3.9 (3.6-5.0) mmol/L Chloride 108 H (98-107) mmol/L Carbon Dioxide 24 (21-33) mmol/L Anion Gap 13 (10-20) BUN 7 (7-21) mg/dL Creatinine 0.9 (0.8-1.5) mg/dl Est GFR ( Amer) > 60 Est GFR (Non-Af Amer) > 60 Random Glucose 80 (70-110) mg/dL Calcium 8.6 (8.4-10.5) mg/dL Phosphorus 2.7 (2.5-4.5) mg/dL Magnesium 2.0 (1.7-2.2) mg/dL Total Bilirubin 0.8 (0.2-1.3) mg/dL AST 95 H D (17-59) U/L ALT 63 H (7-56) U/L Alkaline Phosphatase 69 (38-126) U/L Total Protein 6.6 (5.8-8.3) g/dL Albumin 3.4 (3.0-4.8) g/dL Globulin 3.3 gm/dL Albumin/Globulin Ratio 1.0 L (1.1-1.8) Procalcitonin (0.19-0.49) NG/ML Influenza Typ A,B (EIA) (NEGATIVE) Ur L.pneumophila Ag (NEGATIVE) 11/07/17 11/06/17 11/06/17 Range/Units 02:30 17:30 17:30 WBC 11.2 H (4.5-11.0) 10^3/ul RBC 4.67 (3.5-6.1) 10^6/uL Hgb 12.9 L (14.0-18.0) g/dL Hct 40.2 L (42.0-52.0) % MCV 86.1 (80.0-105.0) fl MCH 27.6 (25.0-35.0) pg MCHC 32.1 (31.0-37.0) g/dl RDW 14.8 H (11.5-14.5) % Plt Count 224 (120.0-450.0) 10^3/uL MPV 9.8 (7.0-11.0) fl pCO2 (35-45) mm/Hg pO2 (80-100) mm/Hg HCO3 (21-28) mmol/L ABG pH (7.35-7.45) ABG Total CO2 (22-28) mmol.L ABG O2 Saturation (95-98) % ABG O2 Content (15-23) ML/dl ABG Base Excess (-2.0-3.0) mmol/L ABG Hemoglobin (11.7-17.4) g/dL ABG Carboxyhemoglobin (0.5-1.5) % POC ABG HHb (Measured) (0-5) % ABG Methemoglobin (0.0-3.0) % ABG O2 Capacity (16-24) mL/dl Hgb O2 Saturation (95.0-98.0) % FiO2 % Sodium (132-148) mmol/L Potassium (3.6-5.0) mmol/L Chloride (98-107) mmol/L Carbon Dioxide (21-33) mmol/L Anion Gap (10-20) BUN (7-21) mg/dL Creatinine (0.8-1.5) mg/dl Est GFR ( Amer) Est GFR (Non-Af Amer) Random Glucose (70-110) mg/dL Calcium (8.4-10.5) mg/dL Phosphorus (2.5-4.5) mg/dL Magnesium (1.7-2.2) mg/dL Total Bilirubin (0.2-1.3) mg/dL AST (17-59) U/L ALT (7-56) U/L Alkaline Phosphatase (38-126) U/L Total Protein (5.8-8.3) g/dL Albumin (3.0-4.8) g/dL Globulin gm/dL Albumin/Globulin Ratio (1.1-1.8) Procalcitonin (0.19-0.49) NG/ML Influenza Typ A,B (EIA) Negative for flu a/b (NEGATIVE) Ur L.pneumophila Ag Negative (NEGATIVE) 11/06/17 Range/Units 11:45 WBC (4.5-11.0) 10^3/ul RBC (3.5-6.1) 10^6/uL Hgb (14.0-18.0) g/dL Hct (42.0-52.0) % MCV (80.0-105.0) fl MCH (25.0-35.0) pg MCHC (31.0-37.0) g/dl RDW (11.5-14.5) % Plt Count (120.0-450.0) 10^3/uL MPV (7.0-11.0) fl pCO2 (35-45) mm/Hg pO2 (80-100) mm/Hg HCO3 (21-28) mmol/L ABG pH (7.35-7.45) ABG Total CO2 (22-28) mmol.L ABG O2 Saturation (95-98) % ABG O2 Content (15-23) ML/dl ABG Base Excess (-2.0-3.0) mmol/L ABG Hemoglobin (11.7-17.4) g/dL ABG Carboxyhemoglobin (0.5-1.5) % POC ABG HHb (Measured) (0-5) % ABG Methemoglobin (0.0-3.0) % ABG O2 Capacity (16-24) mL/dl Hgb O2 Saturation (95.0-98.0) % FiO2 % Sodium (132-148) mmol/L Potassium (3.6-5.0) mmol/L Chloride (98-107) mmol/L Carbon Dioxide (21-33) mmol/L Anion Gap (10-20) BUN (7-21) mg/dL Creatinine (0.8-1.5) mg/dl Est GFR ( Amer) Est GFR (Non-Af Amer) Random Glucose (70-110) mg/dL Calcium (8.4-10.5) mg/dL Phosphorus (2.5-4.5) mg/dL Magnesium (1.7-2.2) mg/dL Total Bilirubin (0.2-1.3) mg/dL AST (17-59) U/L ALT (7-56) U/L Alkaline Phosphatase (38-126) U/L Total Protein (5.8-8.3) g/dL Albumin (3.0-4.8) g/dL Globulin gm/dL Albumin/Globulin Ratio (1.1-1.8) Procalcitonin 3.42 H (0.19-0.49) NG/ML Influenza Typ A,B (EIA) (NEGATIVE) Ur L.pneumophila Ag (NEGATIVE) Laboratory Results - last 24 hr 11/06/17 11/06/17 11/06/17 11:45 17:30 17:30 WBC RBC Hgb Hct MCV MCH MCHC RDW Plt Count MPV pCO2 pO2 HCO3 ABG pH ABG Total CO2 ABG O2 Saturation ABG O2 Content ABG Base Excess ABG Hemoglobin ABG Carboxyhemoglobin POC ABG HHb (Measured) ABG Methemoglobin ABG O2 Capacity Hgb O2 Saturation FiO2 Sodium Potassium Chloride Carbon Dioxide Anion Gap BUN Creatinine Est GFR ( Amer) Est GFR (Non-Af Amer) Random Glucose Calcium Phosphorus Magnesium Total Bilirubin AST ALT Alkaline Phosphatase Total Protein Albumin Globulin Albumin/Globulin Ratio Procalcitonin 3.42 H Influenza Typ A,B (EIA) Negative for flu a/b Ur L.pneumophila Ag Negative 11/07/17 11/07/17 11/07/17 02:30 02:30 02:30 WBC 11.2 H RBC 4.67 Hgb 12.9 L Hct 40.2 L MCV 86.1 MCH 27.6 MCHC 32.1 RDW 14.8 H Plt Count 224 MPV 9.8 pCO2 pO2 HCO3 ABG pH ABG Total CO2 ABG O2 Saturation ABG O2 Content ABG Base Excess ABG Hemoglobin ABG Carboxyhemoglobin POC ABG HHb (Measured) ABG Methemoglobin ABG O2 Capacity Hgb O2 Saturation FiO2 Sodium 142 Potassium 3.9 Chloride 108 H Carbon Dioxide 24 Anion Gap 13 BUN 7 Creatinine 0.9 Est GFR ( Amer) > 60 Est GFR (Non-Af Amer) > 60 Random Glucose 80 Calcium 8.6 Phosphorus 2.7 Magnesium 2.0 Total Bilirubin 0.8 AST 95 H D ALT 63 H Alkaline Phosphatase 69 Total Protein 6.6 Albumin 3.4 Globulin 3.3 Albumin/Globulin Ratio 1.0 L Procalcitonin Influenza Typ A,B (EIA) Ur L.pneumophila Ag 11/07/17 07:00 WBC RBC Hgb Hct MCV MCH MCHC RDW Plt Count MPV pCO2 36 pO2 160.0 H HCO3 23.9 ABG pH 7.43 ABG Total CO2 25.0 ABG O2 Saturation 99.2 H ABG O2 Content 14.4 L ABG Base Excess -0.2 ABG Hemoglobin 10.3 L ABG Carboxyhemoglobin 1.3 POC ABG HHb (Measured) 0.8 ABG Methemoglobin 1.0 ABG O2 Capacity 14.5 L Hgb O2 Saturation 97.0 FiO2 50.0 Sodium Potassium Chloride Carbon Dioxide Anion Gap BUN Creatinine Est GFR ( Amer) Est GFR (Non-Af Amer) Random Glucose Calcium Phosphorus Magnesium Total Bilirubin AST ALT Alkaline Phosphatase Total Protein Albumin Globulin Albumin/Globulin Ratio Procalcitonin Influenza Typ A,B (EIA) Ur L.pneumophila Ag Critical Care Progress Note - Nutrition Nutrition: Nutrition Category Date Time Status NPO Diet [DIET] Diets 11/06/17 Breakfast Ordered Assessment/Plan - Assessment and Plan (Free Text) Assessment: Patient seen and examined on rounds with resident, agree with note with following additions/exceptions: Pt is 22yo male with a PMH of polysubstance abuse (Heroin, ETOH, Marijuana), anxiety (recently started on Xanax), depression (on Seroquel), and asthma who presents to ED after being found in car unresponsive possibly due to opiate overdose. Patient was transferred to ICU and intubated due to hypoxic respiratory failure, PNA, and altered mental status. ovenright generalized tonic clonic activity noted by RN, which self resolved. Currently intubated sedated, awaiting EEG. Resp failure, hypoxic PNA Pneumonitis Polysubstance Abuse ?Seizure disorder Etoh Abuse FIDELINA/ARF Recommend: - Cont with ventilatory support, low tidal vol ventilation, daily ABG, CXR - antibiotics as per ID, Cefepime, Vanco, Azithro - check urine Lg, Strep, Procal, UCx, BCx, Sputum culture - BP control - IVF hydration - ECHO - Feeds - EEG - Neuro consult - ?repeat imaging of brain - monitor for sigs of opiate, EtOH withdrawal - Thiamine, Folic, MVT - GI ppx - DVT ppx, HSQ - Monitor in MICU Critical care time 40 minutes
[2017-11-07 07:09] LABS: ARTERIAL BLOOD GAS HCO3 23.9 mmol/L (21-28); ARTERIAL BLOOD GAS HEMOGLOBIN 10.3 g/dL (11.7-17.4); ARTERIAL BLOOD GAS O2 CAPACITY 14.5 mL/dl (16-24); ARTERIAL BLOOD GAS O2 CONTENT 14.4 ML/dl (15-23); ARTERIAL BLOOD GAS O2 SAT 99.2 % (95-98); ARTERIAL BLOOD GAS PCO2 36 mm/Hg (35-45); ARTERIAL BLOOD GAS PH 7.43 (7.35-7.45)
[2017-11-07] MEDS: Vancomycin 1gm in NS 250ml 1 GM/250 ML BAG IVPB SCH ×2 (07:54→21:14)
--- NOTE | 2017-11-07 08:45 | RAD ---
HISTORY: res. fail COMPARISON: 11/06/2017. FINDINGS: Endotracheal tube terminates 4 cm proximal to the jefe. The nasogastric tube terminates in the stomach. LUNGS: There is interval significant improved aeration in the with residual bilateral lower lobe airspace. PLEURA: No significant pleural effusion identified, no pneumothorax apparent. CARDIOVASCULAR: Normal. OSSEOUS STRUCTURES: No significant abnormalities. VISUALIZED UPPER ABDOMEN: Normal. OTHER FINDINGS: None. IMPRESSION: Interval improved aeration in the lungs with residual bilateral lower lobe pulmonary edema versus consolidation.
--- NOTE | 2017-11-07 09:53 | CP.PCM.PN ---
Subjective - Date & Time of Evaluation Date of Evaluation: 11/07/17 Time of Evaluation: 09:20 - Subjective Subjective: Continues to be on the ventilator, sedated, still with fevers overnight but now is afebrile. Objective - Vital Signs/Intake and Output Vital Signs (last 24 hours): Temp Pulse Resp BP Pulse Ox 100.2 F H 135 H 15 101/50 L 97 11/06/17 06:00 11/06/17 06:00 11/06/17 07:03 11/06/17 06:00 11/06/17 07:03 Intake and Output: 11/06/17 11/06/17 06:59 18:59 Intake Total 4370.9 75 Output Total 950 Balance 3420.9 75 - Medications Medications: Current Medications Acetaminophen (Tylenol 650mg/20.3ml Solution Ud) 650 mg NG Q6H PRN PRN Reason: Fever >100.4 F Last Admin: 11/06/17 03:00 Dose: 650 mg Albuterol/Ipratropium (Duoneb 3 Mg/0.5 Mg (3 Ml) Ud) 3 ml IH [id number] [facility] Last Admin: 11/06/17 13:10 Dose: 3 ml Heparin Sodium (Porcine) (Heparin) 5,000 units SC Q8 INDIGO PRN Reason: Protocol Last Admin: 11/06/17 13:19 Dose: 5,000 units Sodium Chloride (Sodium Chloride 0.9%) 1,000 mls @ 125 mls/hr IV .Q8H [facility] Last Admin: 11/06/17 12:00 Dose: 125 mls/hr Doxycycline Hyclate 100 mg/ (Sodium Chloride) 100 mls @ 100 mls/hr IVPB Q12 INDIGO PRN Reason: Protocol Last Admin: 11/06/17 09:42 Dose: 100 mls/hr Propofol (Diprivan) 1,000 mg in 100 mls @ 2.654 mls/hr IV .Q24H PRN; Protocol; 5 MCG/KG/MIN PRN Reason: TITRATE PER MD ORDER Last Admin: 11/06/17 12:07 Dose: 35 mcg/kg/min, 18.575 mls/hr Vancomycin HCl (Vancomycin 1gm) 1 gm in 250 mls @ 167 mls/hr IVPB Q12H IN[facility]O PRN Reason: Protocol Last Admin: 11/06/17 08:13 Dose: 167 mls/hr Cefepime HCl (Maxipime 2gm) 2 gm in 100 mls @ 100 mls/hr IVPB Q8 INDIGO PRN Reason: Protocol Stop: 11/11/17 10:16 Last Admin: 11/06/17 14:20 Dose: 100 mls/hr Pantoprazole Sodium (Protonix Inj) 40 mg IVP DAILY [facility] Last Admin: 11/06/17 09:41 Dose: 40 mg - Labs Labs: 11/06/17 02:00 11/06/17 02:00 PT 10.9 SECONDS (9.4-12.5) 11/05/17 09:10 INR 0.95 (0.93-1.08) 11/05/17 09:10 APTT 26.9 Seconds (25.1-36.5) 11/05/17 09:10 - Constitutional Appears: Other (intubated, sedated) - Head Exam Head Exam: NORMAL INSPECTION - ENT Exam Additional comments: ET tube in place - Respiratory Exam Respiratory Exam: Decreased Breath Sounds, Rales (scattered) - Cardiovascular Exam Cardiovascular Exam: +S1, +S2 - GI/Abdominal Exam GI & Abdominal Exam: Soft. absent: Tenderness Assessment and Plan - Assessment and Plan (Free Text) Plan: Assessment Systemic Inflammatory Response Syndrome, consider due to acute stress reaction from acute substance use with pulmonary edema, now with VDRF, R/O sepsis from bilateral pneumonia acute pulmonary edema substance abuse anxiety depression asthma Plan Reviewed CXR which shows pulmonary edema but cannot rule out pneumonia in the lower lobes; blood cx negative so far, follow up sputum cx; PCT is elevated at 3.42, rapid Influenza test is negative continue Vancomycin and Cefepime and doxycycline day 2 follow up rapid HIV test will continue to monitor clinically
--- NOTE | 2017-11-07 10:01 | PN ---
DATE: 11/06/2017 SOCIAL MEDIA ASSISTANT NOTE LOCATION: [facility]. SUBJECTIVE: The patient is resting in bed, sedated with propofol and requiring ventilator support with FIO2 of 60%. The patient had respiratory distress last night and noted to have increased infiltrates on chest x-ray, felt that the patient had presented to the hospital with aspiration pneumonia and most likely secondary to the fact that he was unresponsive secondary to a drug overdose when presenting to the ER. At this time, he is hemodynamically stable, but slightly tachycardic, O2 saturation is 99%. PHYSICAL EXAMINATION: VITAL SIGNS: Physical exam note that his temperature is 100.2, his pulse is 118, respirations are 15 and BP is 101/50. SKIN: Warm and dry. HEENT: Head atraumatic, normocephalic. Eyes reactive to light. Ear, nose and throat seemed to be within normal limits. NECK: Supple. No JVD. No thyroid enlargement. No lymph nodes. HEART: Regular rate and rhythm. Normal S1, S2, but tachycardic. LUNGS: Reveal mild rhonchi bilaterally. ABDOMEN: Soft. Decreased bowel sounds. GENITALIA AND RECTAL: Deferred. MUSCULOSKELETAL: No joint deformities. EXTREMITIES: Reveal no edema. NEUROLOGICALLY: He is sedated on the ventilator at this time. LABORATORY DATA: As far as laboratories, his white count is 12.2, hemoglobin is 11.7, hematocrit 36.8 with platelets of 200,000. Arterial blood gas reveals a pH of 7.36, pCO2 of 43, pO2 of 189. His sodium is 141, potassium 4.0, chloride 105, CO2 of 29 with a BUN of 12, creatinine of 1.0 and a glucose of 86. Chest x-ray revealed that there is increase of pulmonary edema and the endotracheal tube and nasogastric tube are in good position. IMPRESSION: This patient has respiratory failure with most likely aspiration pneumonia, initially admitted for drug overdose and being unresponsive. The patient also has some renal insufficiency. PLAN: As far as our plan, we will continue with ventilator support and decrease the FIO2 as tolerated. We will follow his chest x-ray and arterial blood gas closely. The patient will get a ID consult and Pulmonary consult and we will continue with antibiotics hydration and correct his laboratories as needed. We will continue with aggressive pulmonary toilet and follow closely and treat aggressively along with the other consultants and the primary care doctor. Felix Khan MD
--- NOTE | 2017-11-07 14:53 | CP.PCM.CON ---
History of Present Illness - History of Present Illness History of Present Illness: Neuro Consult Note: 22 M with pmh of polysubstance abuse presents to the ED after being found unresponsive in the passenger seat of a car. As per patients mother and girlfriend the patient was found unresponsive in a parked car. His girlfriend states that he has a history of heroin use and was recently in rehab and uncertain when the last use was. She also states that his psychologist gave him some Xanax which he took 2 pills. When the girlfriend found him unresponsive she brought him into the ED. In the ED patient was intubated for hypoxic resp failure and sedated. Head CT was neg. Neuro was consulted and Patient was sent to the ICU for close observation. Review of Systems - Review of Systems Systems not reviewed;Unavailable: Intubated All systems: reviewed and no additional remarkable complaints except Past Patient History - Infectious Disease Hx of Infectious Diseases: None - Past Social History Smoking Status: Heavy Smoker > 10 Cigarettes Daily - PULMONARY Hx Asthma: Yes - MUSCULOSKELETAL/RHEUMATOLOGICAL Hx Falls: No - PSYCHIATRIC Hx Anxiety: Yes Hx Depression: Yes Hx Substance Use: Yes - SURGICAL HISTORY Hx Surgeries: No - ANESTHESIA Hx Anesthesia: No Hx Anesthesia Reactions: No Hx Malignant Hyperthermia: No Meds Allergies/Adverse Reactions: Allergies Allergy/AdvReac Type Severity Reaction Status Date / Time banana Allergy RASH Verified 09/01/16 13:18 fruits Allergy Uncoded 09/29/16 16:32 - Medications Medications: Current Medications Acetaminophen (Tylenol 650mg/20.3ml Solution Ud) 650 mg NG Q6H PRN PRN Reason: Fever >100.4 F Last Admin: 11/07/17 02:36 Dose: 650 mg Albuterol/Ipratropium (Duoneb 3 Mg/0.5 Mg (3 Ml) Ud) 3 ml IH [id number] [facility] Last Admin: 11/07/17 13:12 Dose: 3 ml Folic Acid (Folic Acid) 1 mg PO DAILY [facility] Last Admin: 11/07/17 11:49 Dose: 1 mg Heparin Sodium (Porcine) (Heparin) 5,000 units SC Q8 INDIGO PRN Reason: Protocol Last Admin: 11/07/17 05:36 Dose: 5,000 units Sodium Chloride (Sodium Chloride 0.9%) 1,000 mls @ 125 mls/hr IV .Q8H [facility] Last Admin: 11/07/17 04:35 Dose: 125 mls/hr Doxycycline Hyclate 100 mg/ (Sodium Chloride) 100 mls @ 100 mls/hr IVPB Q12 INDIGO PRN Reason: Protocol Last Admin: 11/07/17 09:19 Dose: 100 mls/hr Propofol (Diprivan) 1,000 mg in 100 mls @ 2.654 mls/hr IV .Q24H PRN; Protocol; 5 MCG/KG/MIN PRN Reason: TITRATE PER MD ORDER Last Titration: 11/07/17 12:30 Dose: 45 mcg/kg/min, 23.882 mls/hr Vancomycin HCl (Vancomycin 1gm) 1 gm in 250 mls @ 167 mls/hr IVPB Q12H [facility] PRN Reason: Protocol Last Admin: 11/07/17 07:54 Dose: 167 mls/hr Cefepime HCl (Maxipime 2gm) 2 gm in 100 mls @ 100 mls/hr IVPB Q8 INDIGO PRN Reason: Protocol Stop: 11/11/17 10:16 Last Admin: 11/07/17 05:33 Dose: 100 mls/hr Lorazepam (Ativan) 2 mg IVP Q4 PRN; Protocol PRN Reason: Agitation Multivitamins/Minerals (Therapeutic-M Tab) 1 tab PO 0800 [facility] Pantoprazole Sodium (Protonix Inj) 40 mg IVP DAILY [facility] Last Admin: 11/07/17 09:18 Dose: 40 mg Thiamine HCl (Vitamin B1 Tab) 100 mg PO DAILY [facility] Last Admin: 11/07/17 11:49 Dose: 100 mg Physical Exam - Constitutional Appears: No Acute Distress - Head Exam Head Exam: ATRAUMATIC, NORMOCEPHALIC - Eye Exam Eye Exam: PERRL Pupil Exam: NORMAL ACCOMODATION - ENT Exam ENT Exam: Mucous Membranes Moist - Respiratory Exam Respiratory Exam: Clear to Auscultation Bilateral. absent: Wheezes - Cardiovascular Exam Cardiovascular Exam: REGULAR RHYTHM, +S1, +S2 - GI/Abdominal Exam GI & Abdominal Exam: Normal Bowel Sounds, Soft. absent: Tenderness - Extremities Exam Extremities exam: Negative for: calf tenderness - Neurological Exam Neurological exam: CN II-XII Intact Additional comments: Pt is sedated Moves all extremities to painful stimuli. Gag and corneal reflexes intact. Results - Vital Signs Recent Vital Signs: Last Vital Signs Temp 98.2 F 11/07/17 13:00 Pulse 77 11/07/17 13:00 Resp 15 11/07/17 09:02 BP 123/58 L 11/07/17 13:00 Pulse Ox 99 11/07/17 13:00 - Labs Result Diagrams: 11/07/17 02:30 11/07/17 02:30 Labs: Laboratory Results - last 24 hr 11/06/17 11/06/17 11/06/17 11:45 17:30 17:30 WBC RBC Hgb Hct MCV MCH MCHC RDW Plt Count MPV pCO2 pO2 HCO3 ABG pH ABG Total CO2 ABG O2 Saturation ABG O2 Content ABG Base Excess ABG Hemoglobin ABG Carboxyhemoglobin POC ABG HHb (Measured) ABG Methemoglobin ABG O2 Capacity Hgb O2 Saturation FiO2 Sodium Potassium Chloride Carbon Dioxide Anion Gap BUN Creatinine Est GFR ( Amer) Est GFR (Non-Af Amer) Random Glucose Calcium Phosphorus Magnesium Total Bilirubin AST ALT Alkaline Phosphatase Total Protein Albumin Globulin Albumin/Globulin Ratio Procalcitonin 3.42 H Influenza Typ A,B (EIA) Negative for flu a/b Ur L.pneumophila Ag Negative 11/07/17 11/07/17 11/07/17 02:30 02:30 02:30 WBC 11.2 H RBC 4.67 Hgb 12.9 L Hct 40.2 L MCV 86.1 MCH 27.6 MCHC 32.1 RDW 14.8 H Plt Count 224 MPV 9.8 pCO2 pO2 HCO3 ABG pH ABG Total CO2 ABG O2 Saturation ABG O2 Content ABG Base Excess ABG Hemoglobin ABG Carboxyhemoglobin POC ABG HHb (Measured) ABG Methemoglobin ABG O2 Capacity Hgb O2 Saturation FiO2 Sodium 142 Potassium 3.9 Chloride 108 H Carbon Dioxide 24 Anion Gap 13 BUN 7 Creatinine 0.9 Est GFR ( Amer) > 60 Est GFR (Non-Af Amer) > 60 Random Glucose 80 Calcium 8.6 Phosphorus 2.7 Magnesium 2.0 Total Bilirubin 0.8 AST 95 H D ALT 63 H Alkaline Phosphatase 69 Total Protein 6.6 Albumin 3.4 Globulin 3.3 Albumin/Globulin Ratio 1.0 L Procalcitonin Influenza Typ A,B (EIA) Ur L.pneumophila Ag 11/07/17 07:00 WBC RBC Hgb Hct MCV MCH MCHC RDW Plt Count MPV pCO2 36 pO2 160.0 H HCO3 23.9 ABG pH 7.43 ABG Total CO2 25.0 ABG O2 Saturation 99.2 H ABG O2 Content 14.4 L ABG Base Excess -0.2 ABG Hemoglobin 10.3 L ABG Carboxyhemoglobin 1.3 POC ABG HHb (Measured) 0.8 ABG Methemoglobin 1.0 ABG O2 Capacity 14.5 L Hgb O2 Saturation 97.0 FiO2 50.0 Sodium Potassium Chloride Carbon Dioxide Anion Gap BUN Creatinine Est GFR ( Amer) Est GFR (Non-Af Amer) Random Glucose Calcium Phosphorus Magnesium Total Bilirubin AST ALT Alkaline Phosphatase Total Protein Albumin Globulin Albumin/Globulin Ratio Procalcitonin Influenza Typ A,B (EIA) Ur L.pneumophila Ag Assessment & Plan - Assessment and Plan (Free Text) Assessment: 22 M with pmh of polysubstance abuse presents to the ED after being found unresponsive in the car. Neuro consulted for suspected seizures. - EEG: performed and showed no seizure activity - Head CT was normal - No anti seizure medications required at this time - Medical management as per ICU - Cont antibiotics as per ID - F/u Echo ordered Case and Plan was reviewed and discussed with Dr Fajardo.
[2017-11-07] MEDS: Dexmedetomidine 400mcg/100mL 400 MCG/100 ML BOTTLE IV PRN (17:23)
--- NOTE | 2017-11-07 18:11 | CARD ---
APPROVED REPORT EXAM: Two-dimensional and M-mode echocardiogram with Doppler and color Doppler. INDICATION EVALUATE HEART FUNCTION 2D DIMENSIONS RVDd3.3 (2.9-3.5cm)Left Atrium (2D)3.4 (1.6-4.0cm) IVSd1.0 (0.7-1.1cm)LVDd4.7 (3.9-5.9cm) PWd1.1 (0.7-1.1cm)LVDs3.4 (2.5-4.0cm) FS (%) 28.1 %LVEF (%)54.2 (>50%) M-Mode DIMENSIONS Aortic Root3.20 (2.2-3.7cm)Aortic Cusp Exc.1.70 (1.5-2.0cm) Aortic Valve AoV Peak Enhhffoz622.0cm/Chepe Peak GR.5mmHg Mitral Valve MV E Phcgsbld573.0cm/sMV A Cfwfdgpm14.5cm/sE/A ratio1.5 TDI Lateral E' Peak V16.80cm/sMedial E' Peak V13.20cm/sE/Lateral E'6.8 E/Medial E'8.7 Pulmonary Valve PV Peak Kuhodcmk85.7cm/sPV Peak Grad.2mmHg Tricuspid Valve TR Peak Jyvyycqk147fw/sRAP [id number] Peak Gr.15mmHg [id number] LEFT VENTRICLE The left ventricle is normal size. There is normal left ventricular wall thickness. The left ventricular function is normal. The left ventricular ejection fraction is within the normal range. There is normal LV segmental wall motion. The left ventricular diastolic function is normal. RIGHT VENTRICLE The right ventricle is borderline dilated. RV Systolic function is mildly reduced. ATRIA The left atrium size is normal. The right atrium size is normal. AORTIC VALVE The aortic valve is normal in structure. No aortic regurgitation is present. There is no aortic valvular stenosis. MITRAL VALVE The mitral valve is normal in structure. There is no mitral valve regurgitation noted. TRICUSPID VALVE There is no pulmonary hypertension. GREAT VESSELS The aortic root is normal in size. PERICARDIAL EFFUSION There is no pericardial effusion. <Conclusion> The left ventricle is normal size. There is normal left ventricular wall thickness. The left ventricular function is normal. The left ventricular ejection fraction is within the normal range. There is normal LV segmental wall motion. The left ventricular diastolic function is normal. The right ventricle is borderline dilated. RV Systolic function is mildly reduced.
--- NOTE | 2017-11-07 22:30 | CP.PCM.PN ---
<Lori Eduardo - Last Filed: 11/07/17 22:27> Subjective - Date & Time of Evaluation Date of Evaluation: 11/07/17 Time of Evaluation: 11:40 - Subjective Subjective: Chief Complaint: AMS 22 yr male resident w/ history of heroin abuse, smoker, & ETOH abuse. [place] [facility] [place] who suspected possible opiate overdose. Upon admission, pt was unresponsive and sent to ICU, Drug screen tested positive for benzos, opioids, & marijuana. Pt is intubated, non-verbal, and poor historian due to sedation. Pt is responsive to sound and able to move extremities. Pt's mother, Jyoti, & girlfriend, Flavia, can be reached at [phone], they are both at the bedside. Objective - Vital Signs/Intake and Output Vital Signs (last 24 hours): Temp Pulse Resp BP Pulse Ox 100.0 F H 95 H 15 94/55 L 98 11/07/17 18:59 11/07/17 18:59 11/07/17 09:02 11/07/17 19:00 11/07/17 18:59 Intake and Output: 11/07/17 11/08/17 18:59 06:59 Intake Total 375 30 Balance 375 30 - Medications Medications: Current Medications Acetaminophen (Tylenol 650mg/20.3ml Solution Ud) 650 mg NG Q6H PRN PRN Reason: Fever >100.4 F Last Admin: 11/07/17 17:54 Dose: 650 mg Albuterol/Ipratropium (Duoneb 3 Mg/0.5 Mg (3 Ml) Ud) 3 ml IH [id number] [facility] Last Admin: 11/07/17 20:00 Dose: 3 ml Folic Acid (Folic Acid) 1 mg PO DAILY [facility] Last Admin: 11/07/17 11:49 Dose: 1 mg Heparin Sodium (Porcine) (Heparin) 5,000 units SC Q8 INDIGO PRN Reason: Protocol Last Admin: 11/07/17 21:12 Dose: 5,000 units Sodium Chloride (Sodium Chloride 0.9%) 1,000 mls @ 125 mls/hr IV .Q8H [facility] Last Admin: 11/07/17 21:15 Dose: 125 mls/hr Doxycycline Hyclate 100 mg/ (Sodium Chloride) 100 mls @ 100 mls/hr IVPB Q12 IN[facility] PRN Reason: Protocol Last Admin: 11/07/17 21:11 Dose: 100 mls/hr Propofol (Diprivan) 1,000 mg in 100 mls @ 2.654 mls/hr IV .Q24H PRN; Protocol; 5 MCG/KG/MIN PRN Reason: TITRATE PER MD ORDER Last Admin: 11/07/17 20:18 Dose: 40 mcg/kg/min, 21.228 mls/hr Vancomycin HCl (Vancomycin 1gm) 1 gm in 250 mls @ 167 mls/hr IVPB Q12H [facility] PRN Reason: Protocol Last Admin: 11/07/17 21:14 Dose: 167 mls/hr Cefepime HCl (Maxipime 2gm) 2 gm in 100 mls @ 100 mls/hr IVPB Q8 INDIGO PRN Reason: Protocol Stop: 11/11/17 10:16 Last Admin: 11/07/17 21:11 Dose: 100 mls/hr Dexmedetomidine HCl (Precedex 400mcg/100ml) 400 mcg in 100 mls @ 4.672 mls/hr IV .[id number] PRN; Protocol; 0.2 MCG/KG/HR PRN Reason: Agitation Last Titration: 11/07/17 17:53 Dose: 0.4 mcg/kg/hr, 9.344 mls/hr Lorazepam (Ativan) 2 mg IVP Q4 PRN; Protocol PRN Reason: Agitation Last Admin: 11/07/17 17:05 Dose: 2 mg Multivitamins/Minerals (Therapeutic-M Tab) 1 tab PO 0800 [facility] Pantoprazole Sodium (Protonix Inj) 40 mg IVP DAILY [facility] Last Admin: 11/07/17 09:18 Dose: 40 mg Thiamine HCl (Vitamin B1 Tab) 100 mg PO DAILY [facility] Last Admin: 11/07/17 11:49 Dose: 100 mg - Labs Labs: 11/07/17 02:30 11/07/17 02:30 PT 10.9 SECONDS (9.4-12.5) 11/05/17 09:10 INR 0.95 (0.93-1.08) 11/05/17 09:10 APTT 26.9 Seconds (25.1-36.5) 11/05/17 09:10 - Constitutional Appears: No Acute Distress - Head Exam Head Exam: ATRAUMATIC, NORMAL INSPECTION, NORMOCEPHALIC - Eye Exam Eye Exam: Normal appearance - ENT Exam ENT Exam: Mucous Membranes Moist, Normal Exam - Neck Exam Neck Exam: Normal Inspection. absent: Lymphadenopathy - Respiratory Exam Respiratory Exam: Rhonchi - Cardiovascular Exam Cardiovascular Exam: Tachycardia, +S1, +S2 - GI/Abdominal Exam GI & Abdominal Exam: Firm, Hypoactive Bowel Sounds - Extremities Exam Extremities Exam: Normal Capillary Refill, Normal Inspection - Neurological Exam Neurological Exam: Altered - Psychiatric Exam Psychiatric exam: Normal Affect, Normal Mood - Skin Skin Exam: Dry, Intact, Normal Color, Warm Assessment and Plan (1) Leukocytosis Status: Acute (2) Hyperglycemia Status: Acute (3) Anemia Status: Acute (4) Acute renal failure Status: Acute (5) Opiate overdose Status: Acute (6) Alcohol abuse Status: Acute (7) Drug abuse Status: Acute - Assessment and Plan (Free Text) Plan: IV doxycycline & vancomycin & cefepime. IV ativan. Intubated. NG tube. Culture: blood NEGATIVE, urine NEGATIVE, & nares NEGATIVE. GI/VTE prophylaxis. Consults: Pulmo - Dr. Clifton Neuro - Dr. Danielle LINDER - Dr. Winn Reviewed: CXR = WNL CT head = WNL CXR = 3/4 increasing perihilar infiltrates, CHF, pneumonia CXR = 3/4 increasing pulmonary edema CXR - 3/5 interval improved aeration in the lungs w. residual bilateral lower lobe pulmonary edema vs consolidation ECG = ST <Mitzi Berger - Last Filed: 11/08/17 17:29> Objective - Vital Signs/Intake and Output Vital Signs (last 24 hours): Temp Pulse Resp BP Pulse Ox 97.9 F 85 15 125/72 99 11/08/17 08:21 11/08/17 13:23 11/08/17 08:21 11/08/17 08:21 11/08/17 08:21 Intake and Output: 11/08/17 11/08/17 06:59 18:59 Intake Total 325 200 Balance 325 200 - Medications Medications: Current Medications Acetaminophen (Tylenol 650mg/20.3ml Solution Ud) 650 mg NG Q6H PRN PRN Reason: Fever >100.4 F Last Admin: 11/07/17 17:54 Dose: 650 mg Albuterol/Ipratropium (Duoneb 3 Mg/0.5 Mg (3 Ml) Ud) 3 ml IH [id number] [facility] Last Admin: 11/08/17 13:59 Dose: 3 ml Alprazolam (Xanax) 0.5 mg PO BID [facility] PRN Reason: Protocol Last Admin: 11/08/17 17:22 Dose: 0.5 mg Folic Acid (Folic Acid) 1 mg PO DAILY [facility] Last Admin: 11/08/17 09:22 Dose: 1 mg Heparin Sodium (Porcine) (Heparin) 5,000 units SC Q8 INDIGO PRN Reason: Protocol Last Admin: 11/08/17 13:12 Dose: 5,000 units Doxycycline Hyclate 100 mg/ (Sodium Chloride) 100 mls @ 100 mls/hr IVPB Q12 INDIGO PRN Reason: Protocol Last Admin: 11/08/17 09:21 Dose: 100 mls/hr Cefepime HCl (Maxipime 2gm) 2 gm in 100 mls @ 100 mls/hr IVPB Q8 [facility]O PRN Reason: Protocol Stop: 11/11/17 10:16 Last Admin: 11/08/17 13:14 Dose: 100 mls/hr Lorazepam (Ativan) 2 mg IVP Q4 PRN; Protocol PRN Reason: Agitation Last Admin: 11/08/17 07:58 Dose: 2 mg Multivitamins/Minerals (Therapeutic-M Tab) 1 tab PO 0800 [facility] Last Admin: 11/08/17 07:59 Dose: 1 tab Pantoprazole Sodium (Protonix Inj) 40 mg IVP DAILY [facility] Last Admin: 11/08/17 09:21 Dose: 40 mg Thiamine HCl (Vitamin B1 Tab) 100 mg PO DAILY [facility] Last Admin: 11/08/17 09:22 Dose: 100 mg - Labs Labs: 11/08/17 08:30 11/08/17 06:00 PT 11.9 SECONDS (9.4-12.5) 11/08/17 06:00 INR 1.03 (0.93-1.08) 11/08/17 06:00 APTT 26.9 Seconds (25.1-36.5) 11/05/17 09:10 Assessment and Plan - Assessment and Plan (Free Text) Plan: 22 yr male resident w/ history of heroin abuse, smoker, & ETOH abuse. Pt was [place] [facility] [place] who suspected possible opiate overdose. Upon admission, pt was unresponsive and sent to ICU, Drug screen tested positive for benzos, opioids, & marijuana. Pt is intubated, non-verbal, and poor historian due to sedation. Pt is responsive to sound and able to move extremities. Pt's mother, Jyoti, & girlfriend, Flavia, can be reached at [phone], they are both at the bedside.pt is seen and examine at bed side , looking comfortable . agreed all above , chart, meds and labs noted , will f/u
[2017-11-08] MEDS: Propofol 10 mg/ml 1,000 MG/100 ML VIAL IV PRN ×3 (01:09→09:31)
[2017-11-08] MEDS: Dexmedetomidine 400mcg/100mL 400 MCG/100 ML BOTTLE IV PRN ×2 (01:15→09:22)
--- NOTE | 2017-11-08 01:47 | PN ---
DATE: 11/07/2017 PULMONARY PROGRESS NOTE REFERRING PHYSICIAN: Dr. Berger. SUBJECTIVE: The patient is intubated and sedated, overnight events noted, ended up with seizures, on high dose of Diprivan. Precedex is also started. Not much ET tube secretion. No hemoptysis, no hematemesis, no hematuria, no diarrhea reported. OBJECTIVE GENERAL: Intubated and sedated. VITAL SIGNS: Temp is 100, heart rate is 95, respiratory rate is 20, blood pressure 94/55, pulse ox 98% on ventilator with 40% oxygen. HEENT: Moist mucous membrane. ET tube, no secretion. NECK: Short thick neck. LUNGS: Have scattered rhonchi. HEART: S1, S2. ABDOMEN: Soft, nontender. No organomegaly. EXTREMITIES: There is no edema. NEUROLOGIC: Intubated and sedated. MEDICATIONS: He is on Ativan 2 mg q.4 hours p.r.n., on IV Diprivan, doxycycline 100 mg twice a day, DuoNeb q.6 hours, folic acid 1 mg daily, heparin 5000 units subcu q.8 hours, cefepime 2 g IV q.8 hours, Precedex IV started, Protonix 40 mg IV daily, IV fluid normal saline 125 mL per hour, multivitamins daily, Tylenol p.r.n. basis, vancomycin 1 g IV q.12 hours and vitamin B 100 mg daily. LABORATORY DATA: Shows hemoglobin 12.9, hematocrit 42.2, WBC 11.2, platelet is 224. Blood gases show pH 7.43, pCO2 of 36, O2 of 150, this is on ventilator at 50% oxygen. Sodium 142, potassium 3.9, chloride 108, bicarbonate 24, BUN 7, creatinine 0.9, glucose 80, calcium is 8.6, phosphorus 2.7, magnesium 2.0. AST 95, ALT 63, alk phos is 69. Albumin is 3.4, procalcitonin 3.42. Microbiology: Blood culture, urine culture, sputum culture and nares, all are unremarkable. He had echocardiogram done this morning shows right ventricular systolic pressure is 25, LV ejection fraction is normal, left ventricular diastolic function is normal. Right ventricular systolic pressure is mildly reduced. IMPRESSION AND PLAN: Drug overdose with respiratory failure, aspiration pneumonia, leukocytosis, probably benzodiazepine withdrawal seizure. Continue sedation. Continue present ventilator setting, keep head at 45 degrees. Continue IV fluid. Gastric prophylaxis, deep venous thrombosis prophylaxis. Follow up ABG, chest x-ray, CBC, CMP in the morning. Critical care time more than 35 minutes. Thank you and we will follow with you. Serg Clifton MD
[2017-11-08] MEDS: Albuterol-Ipratrop 3 mg / 0.5 (3 ml) UD IH SCH ×3 (01:55→13:59)
[2017-11-08] MEDS: Sodium Chloride 0.9% 1,000 ML IV SCH (05:37)
[2017-11-08] MEDS: Cefepime IV 2 gm in NS 2 GM/100 ML BAG IVPB SCH ×2 (05:38→13:14)
[2017-11-08 07:05] LABS: ARTERIAL BLOOD GAS HCO3 23.5 mmol/L (21-28); ARTERIAL BLOOD GAS HEMOGLOBIN 10.6 g/dL (11.7-17.4); ARTERIAL BLOOD GAS O2 CAPACITY 14.7 mL/dl (16-24); ARTERIAL BLOOD GAS O2 CONTENT 14.6 ML/dl (15-23); ARTERIAL BLOOD GAS O2 SAT 99.3 % (95-98); ARTERIAL BLOOD GAS PCO2 38 mm/Hg (35-45); ARTERIAL BLOOD GAS TCO2 24.7 mmol.L (22-28)
[2017-11-08 07:13] LABS: INR 1.03 (0.93-1.08); PROTHROMBIN TIME 11.9 SECONDS (9.4-12.5)
--- NOTE | 2017-11-08 07:31 | CP.CCUPN ---
<Juvenal Nina - Last Filed: 11/08/17 11:09> CCU Subjective - Physician Review Subjective (Free Text): Juvenal Nina PGY1 ICU Progress Note for Dr. Fonseca The patient was seen and examined at bedside in ICU. He is requiring sedation and restraints due to pulling of his tubes and agitation. No acute overnight events. The patient had a low grade fever overnight. 11/08/17 10:58 The patient was taken off propofol and maintained on low dose precedex. He was awake but lethargic, and was put on CPAP/PS. Patient shortly after self extubated himself. Afterward, he was breathing in no distress on non-rebreather and was then put on NC. He is awake and following commands and satting well on NC. CCU Objective - Vital Signs / Intake & Output Vital Signs (Last 4 hours): Vital Signs Pulse 11/08/17 06:00 95 H Intake and Output (Last 8hrs): Intake & Output 11/07/17 11/08/17 11/08/17 22:59 06:59 14:59 Intake Total 200 295 Balance 200 295 Intake: IV 200 295 - Physical Exam Physical Exam Limitations: Positive for: Altered Mental Status Head: Positive for: Atraumatic, Normocephalic Pupils: Positive for: Sluggish, Pinpoint Ears: Positive for: Normal Mouth: Positive for: Moist Mucous Membranes Respiratory/Chest: Positive for: Clear to Auscultation, Good Air Exchange. Negative for: Respiratory Distress, Wheezes, Rales Cardiovascular: Positive for: Regular Rate and Rhythm, Normal S1, S2. Negative for: Murmurs Abdomen: Positive for: Normal Bowel Sounds. Negative for: Tenderness, Distention, Guarding Genitourinary Male: Positive for: Other (vyas catheter in place) Back: Positive for: Normal Inspection Upper Extremity: Positive for: Normal Inspection, Edema (1+ b/l UE) Lower Extremity: Positive for: Normal Inspection. Negative for: Edema Neurological: Negative for: GCS=15, CN II-XII Intact, Speech Normal Skin: Positive for: Warm, Normal Color - Medications Active Medications: Active Medications Generic Name Dose Route Start Last Admin Trade Name Freq PRN Reason Stop Dose Admin Acetaminophen 650 mg 11/06/17 02:36 11/07/17 17:54 Tylenol 650mg/20.3ml Solution Ud NG 650 mg Q6H PRN Administration Fever >100.4 F Albuterol/Ipratropium 3 ml 11/05/17 20:00 11/08/17 01:55 Duoneb 3 Mg/0.5 Mg (3 Ml) Ud IH 3 ml [id number] INDIGO Administration Folic Acid 1 mg 11/07/17 10:00 11/07/17 11:49 Folic Acid PO 1 mg DAILY INDIGO Administration Heparin Sodium (Porcine) 5,000 units 11/05/17 23:00 11/08/17 05:52 Heparin SC 5,000 units Q8 INDIGO Administration Protocol Sodium Chloride 1,000 mls @ 125 mls/hr 11/05/17 19:45 11/08/17 05:37 Sodium Chloride 0.9% IV 125 mls/hr .Q8H INDIGO Administration Doxycycline Hyclate 100 mg/ 100 mls @ 100 mls/hr 11/06/17 10:00 11/07/17 21: 11 Sodium Chloride IVPB 100 mls/hr Q12 INDIGO Administration Protocol Propofol 1,000 mg in 100 mls @ 2.654 mls/hr 11/06/17 01:45 11/08/17 05:39 Diprivan IV 35 mcg/kg/min .Q24H PRN 18.575 mls/hr TITRATE PER MD ORDER Administration Protocol 5 MCG/KG/MIN Vancomycin HCl 1 gm in 250 mls @ 167 mls/hr 11/06/17 07:45 11/07/17 21:14 Vancomycin 1gm IVPB 167 mls/hr Q12H INDIGO Administration Protocol Cefepime HCl 2 gm in 100 mls @ 100 mls/hr 11/06/17 10:15 11/08/17 05:38 Maxipime 2gm IVPB 11/11/17 10:16 100 mls/hr Q8 INDIGO Administration Protocol Dexmedetomidine HCl 400 mcg in 100 mls @ 4.672 mls/hr 11/07/17 17:23 01:15 Precedex 400mcg/100ml IV 0.2 mcg/kg/hr .[id number] PRN 4.672 mls/hr Agitation Administration Protocol 0.2 MCG/KG/HR Lorazepam 2 mg 11/07/17 10:10 11/07/17 17:05 Ativan IVP 2 mg Q4 PRN Administration Agitation Protocol Multivitamins/Minerals 1 tab 11/08/17 08:00 Therapeutic-M Tab PO 0800 INDIGO Pantoprazole Sodium 40 mg 11/06/17 10:00 11/07/17 09:18 Protonix Inj IVP 40 mg DAILY INDIGO Administration Thiamine HCl 100 mg 11/07/17 10:00 11/07/17 11:49 Vitamin B1 Tab PO 100 mg DAILY INDIGO Administration - Patient Studies Lab Studies: Microbiology Studies 11/06/17 14:00 Gram Stain - Final Sputum 11/06/17 02:15 Blood Culture - Preliminary Blood NO GROWTH AFTER 48 HOURS 11/06/17 02:00 Blood Culture - Preliminary Blood NO GROWTH AFTER 48 HOURS 11/05/17 18:00 MRSA Culture (Admit) - Final Naris MRSA NOT DETECTED 11/05/17 10:00 Blood Culture - Preliminary Blood NO GROWTH AFTER 48 HOURS 11/05/17 10:15 Blood Culture - Preliminary Blood NO GROWTH AFTER 48 HOURS Lab Studies 11/08/17 11/08/17 11/07/17 Range/Units 06:45 06:00 07:00 PT 11.9 (9.4-12.5) SECONDS INR 1.03 (0.93-1.08) pCO2 38 36 (35-45) mm/Hg pO2 112.0 H 160.0 H (80-100) mm/Hg HCO3 23.5 23.9 (21-28) mmol/L ABG pH 7.40 7.43 (7.35-7.45) ABG Total CO2 24.7 25.0 (22-28) mmol.L ABG O2 Saturation 99.3 H 99.2 H (95-98) % ABG O2 Content 14.6 L 14.4 L (15-23) ML/dl ABG Base Excess -1.1 -0.2 (-2.0-3.0) mmol/L ABG Hemoglobin 10.6 L 10.3 L (11.7-17.4) g/dL ABG Carboxyhemoglobin 1.6 H 1.3 (0.5-1.5) % POC ABG HHb (Measured) 0.7 0.8 (0-5) % ABG Methemoglobin 1.3 1.0 (0.0-3.0) % ABG O2 Capacity 14.7 L 14.5 L (16-24) mL/dl Hgb O2 Saturation 96.4 97.0 (95.0-98.0) % FiO2 50.0 50.0 % Laboratory Results - last 24 hr 11/07/17 11/08/17 11/08/17 07:00 06:00 06:45 PT 11.9 INR 1.03 pCO2 36 38 pO2 160.0 H 112.0 H HCO3 23.9 23.5 ABG pH 7.43 7.40 ABG Total CO2 25.0 24.7 ABG O2 Saturation 99.2 H 99.3 H ABG O2 Content 14.4 L 14.6 L ABG Base Excess -0.2 -1.1 ABG Hemoglobin 10.3 L 10.6 L ABG Carboxyhemoglobin 1.3 1.6 H POC ABG HHb (Measured) 0.8 0.7 ABG Methemoglobin 1.0 1.3 ABG O2 Capacity 14.5 L 14.7 L Hgb O2 Saturation 97.0 96.4 FiO2 50.0 50.0 Review of Systems - Review of Systems Systems not reviewed;Unavailable: Altered Mental Status Critical Care Progress Note - Extremities/Vascular Does the Patient have a Central Venous Catheter?: No Does the Patient need a Central Venous Catheter?: No Does the Patient have a Vyas Catheter?: Yes Does the Patient need a Vyas Catheter?: Yes - Prophylaxis GI Prophylaxis GI: PPI - Prophylaxis DVT Prophylaxis DVT: Heparin SQ, SCDs Assessment/Plan - Assessment and Plan (Free Text) Assessment: 22 yo M with a PMH of polysubstance abuse (Heroin, ETOH, Marijuana), anxiety ( recently started on Xanax), depression (on Seroquel), and asthma who presents to ED after being found in car unresponsive possibly due to opiate overdose. Patient was transferred to ICU and intubated due to hypoxic respiratory failure and altered mental status. UDS + opiates, benzos and marijuana. Severe sepsis was also noted w/ FIDELINA on presentation. Patient is on IV antibiotics empirically for possible consolidation on CXR. blood and urine cultures are negative so far. Overnight, the patient was noted to have fever, w/ Tmax 100.9 and some seizure like activity. Self extubated today, but is satting well and comfortable on NC. Plan: Neuro: off sedation 2nd EEG ordered for seizure-like activity; 1st EEG did not show any seizure activity Neuro consult placed, recs appreciated thiamine, MV and folic acid given hx of ETOH abuse ativan prn for signs of withdrawal/agitation maintain normothermia; tylenol prn CT head was unremarkable Cardio: maintain normotension NS d/c Echo showed EF 55%, RV reduced function and normal LV wall motion monitor VS Pulm: self-extubated today monitor O2 sats on NC duonebs given hx asthma; no wheezing noted on exam CXR shows possible RLL consolidation on Vanc, Doxy and Cefepime for empiric tx of pneumonia Pulm consulted, recs appreciated GI: swallow eval and start diet when ready GI ppx Renal: FIDELINA resolved; patient is making urine vyas catheter in place monitor for electorlyte changes and replete as needed monitor I/O and urine output ID: Severe sepsis on presentation w/ FIDELINA (now resolved) ID consulted, recs appreciated cont Vanc (renally dosed), doxy and cefepime to cover for b/l pneumonia Fevers overnight, however, now is afebrile tylenol PRN fevers PCT elevated @ 3.42 HIV testing pending blood and urine cultures negative so far Heme: BP is stable H/H stable monitor for signs of bleeding DVT ppx Endo: maintain euglycemia Psych: Hx depression and anxiety; was on Seroquel and recently started on Xanax currently off meds Diet: swallow eval pending DVT ppx: heparin/SCDs GI ppx: ptx Dispo: self-extubated and off sedation. will monitor o2 sat Patient was seen, examined and discussed with attending, Dr. Raymundo Nina PGY1 Pager # [phone] <Jordan Fonseca - Last Filed: 11/08/17 11:22> CCU Objective - Vital Signs / Intake & Output Vital Signs (Last 4 hours): Vital Signs Temp Pulse Resp BP Pulse Ox 11/08/17 08:40 81 11/08/17 08:21 97.9 F 98 H 15 125/72 99 11/08/17 07:45 15 96 Intake and Output (Last 8hrs): Intake & Output 11/07/17 11/08/17 11/08/17 22:59 06:59 14:59 Intake Total 200 295 200 Balance 200 295 200 Weight 206 lb Intake: IV 200 295 200 - Medications Active Medications: Active Medications Generic Name Dose Route Start Last Admin Trade Name Freq PRN Reason Stop Dose Admin Acetaminophen 650 mg 11/06/17 02:36 11/07/17 17:54 Tylenol 650mg/20.3ml Solution Ud NG 650 mg Q6H PRN Administration Fever >100.4 F Albuterol/Ipratropium 3 ml 11/05/17 20:00 11/08/17 07:38 Duoneb 3 Mg/0.5 Mg (3 Ml) Ud IH 3 ml [id number] INDIGO Administration Folic Acid 1 mg 11/07/17 10:00 11/08/17 09:22 Folic Acid PO 1 mg DAILY INDIGO Administration Heparin Sodium (Porcine) 5,000 units 11/05/17 23:00 11/08/17 05:52 Heparin SC 5,000 units Q8 INDIGO Administration Protocol Doxycycline Hyclate 100 mg/ 100 mls @ 100 mls/hr 11/06/17 10:00 11/08/17 09: 21 Sodium Chloride IVPB 100 mls/hr Q12 INDIGO Administration Protocol Vancomycin HCl 1 gm in 250 mls @ 167 mls/hr 11/06/17 07:45 11/08/17 07:58 Vancomycin 1gm IVPB 167 mls/hr Q12H INDIGO Administration Protocol Cefepime HCl 2 gm in 100 mls @ 100 mls/hr 11/06/17 10:15 11/08/17 05:38 Maxipime 2gm IVPB 11/11/17 10:16 100 mls/hr Q8 INDIGO Administration Protocol Lorazepam 2 mg 11/07/17 10:10 11/08/17 07:58 Ativan IVP 2 mg Q4 PRN Administration Agitation Protocol Multivitamins/Minerals 1 tab 11/08/17 08:00 11/08/17 07:59 Therapeutic-M Tab PO 1 tab 0800 INDIGO Administration Pantoprazole Sodium 40 mg 11/06/17 10:00 11/08/17 09:21 Protonix Inj IVP 40 mg DAILY INDIGO Administration Thiamine HCl 100 mg 11/07/17 10:00 11/08/17 09:22 Vitamin B1 Tab PO 100 mg DAILY INDIGO Administration - Patient Studies Lab Studies: Microbiology Studies 11/05/17 10:00 Blood Culture - Preliminary Blood NO GROWTH AFTER 3 DAYS 03/03/18 10:15 Blood Culture - Preliminary Blood NO GROWTH AFTER 3 DAYS 11/06/17 14:00 Gram Stain - Final Sputum 11/06/17 02:15 Blood Culture - Preliminary Blood NO GROWTH AFTER 48 HOURS 11/06/17 02:00 Blood Culture - Preliminary Blood NO GROWTH AFTER 48 HOURS 11/05/17 18:00 MRSA Culture (Admit) - Final Naris MRSA NOT DETECTED Lab Studies 11/08/17 11/08/17 11/08/17 Range/Units 08:30 06:45 06:00 WBC 7.1 D (4.5-11.0) 10^3/ul RBC 4.05 (3.5-6.1) 10^6/uL Hgb 11.0 L (14.0-18.0) g/dL Hct 33.0 L (42.0-52.0) % MCV 81.5 D (80.0-105.0) fl MCH 27.2 (25.0-35.0) pg MCHC 33.3 (31.0-37.0) g/dl RDW 14.0 (11.5-14.5) % Plt Count 214 (120.0-450.0) 10^3/uL MPV 9.4 (7.0-11.0) fl PT (9.4-12.5) SECONDS INR (0.93-1.08) pCO2 38 (35-45) mm/Hg pO2 112.0 H (80-100) mm/Hg HCO3 23.5 (21-28) mmol/L ABG pH 7.40 (7.35-7.45) ABG Total CO2 24.7 (22-28) mmol.L ABG O2 Saturation 99.3 H (95-98) % ABG O2 Content 14.6 L (15-23) ML/dl ABG Base Excess -1.1 (-2.0-3.0) mmol/L ABG Hemoglobin 10.6 L (11.7-17.4) g/dL ABG Carboxyhemoglobin 1.6 H (0.5-1.5) % POC ABG HHb (Measured) 0.7 (0-5) % ABG Methemoglobin 1.3 (0.0-3.0) % ABG O2 Capacity 14.7 L (16-24) mL/dl Hgb O2 Saturation 96.4 (95.0-98.0) % FiO2 50.0 % Sodium 141 (132-148) mmol/L Potassium 3.6 (3.6-5.0) mmol/L Chloride 109 H (98-107) mmol/L Carbon Dioxide 26 (21-33) mmol/L Anion Gap 10 (10-20) BUN 4 L (7-21) mg/dL Creatinine 0.7 L (0.8-1.5) mg/dl Est GFR ( Amer) > 60 Est GFR (Non-Af Amer) > 60 Random Glucose 84 (70-110) mg/dL Calcium 9.0 (8.4-10.5) mg/dL Total Bilirubin 0.5 (0.2-1.3) mg/dL AST 51 (17-59) U/L ALT 48 (7-56) U/L Alkaline Phosphatase 59 (38-126) U/L Total Protein 5.7 L (5.8-8.3) g/dL Albumin 2.8 L (3.0-4.8) g/dL Globulin 2.9 gm/dL Albumin/Globulin Ratio 1.0 L (1.1-1.8) HIV 1&2 Ag/Ab, 4th Gen (Nonreactive) 11/08/17 11/06/17 Range/Units 06:00 11:45 WBC (4.5-11.0) 10^3/ul RBC (3.5-6.1) 10^6/uL Hgb (14.0-18.0) g/dL Hct (42.0-52.0) % MCV (80.0-105.0) fl MCH (25.0-35.0) pg MCHC (31.0-37.0) g/dl RDW (11.5-14.5) % Plt Count (120.0-450.0) 10^3/uL MPV (7.0-11.0) fl PT 11.9 (9.4-12.5) SECONDS INR 1.03 (0.93-1.08) pCO2 (35-45) mm/Hg pO2 (80-100) mm/Hg HCO3 (21-28) mmol/L ABG pH (7.35-7.45) ABG Total CO2 (22-28) mmol.L ABG O2 Saturation (95-98) % ABG O2 Content (15-23) ML/dl ABG Base Excess (-2.0-3.0) mmol/L ABG Hemoglobin (11.7-17.4) g/dL ABG Carboxyhemoglobin (0.5-1.5) % POC ABG HHb (Measured) (0-5) % ABG Methemoglobin (0.0-3.0) % ABG O2 Capacity (16-24) mL/dl Hgb O2 Saturation (95.0-98.0) % FiO2 % Sodium (132-148) mmol/L Potassium (3.6-5.0) mmol/L Chloride (98-107) mmol/L Carbon Dioxide (21-33) mmol/L Anion Gap (10-20) BUN (7-21) mg/dL Creatinine (0.8-1.5) mg/dl Est GFR ( Amer) Est GFR (Non-Af Amer) Random Glucose (70-110) mg/dL Calcium (8.4-10.5) mg/dL Total Bilirubin (0.2-1.3) mg/dL AST (17-59) U/L ALT (7-56) U/L Alkaline Phosphatase (38-126) U/L Total Protein (5.8-8.3) g/dL Albumin (3.0-4.8) g/dL Globulin gm/dL Albumin/Globulin Ratio (1.1-1.8) HIV 1&2 Ag/Ab, 4th Gen Nonreactive (Nonreactive) Laboratory Results - last 24 hr 11/06/17 11/08/17 11/08/17 11:45 06:00 06:00 WBC RBC Hgb Hct MCV MCH MCHC RDW Plt Count MPV PT 11.9 INR 1.03 pCO2 pO2 HCO3 ABG pH ABG Total CO2 ABG O2 Saturation ABG O2 Content ABG Base Excess ABG Hemoglobin ABG Carboxyhemoglobin POC ABG HHb (Measured) ABG Methemoglobin ABG O2 Capacity Hgb O2 Saturation FiO2 Sodium 141 Potassium 3.6 Chloride 109 H Carbon Dioxide 26 Anion Gap 10 BUN 4 L Creatinine 0.7 L Est GFR ( Amer) > 60 Est GFR (Non-Af Amer) > 60 Random Glucose 84 Calcium 9.0 Total Bilirubin 0.5 AST 51 ALT 48 Alkaline Phosphatase 59 Total Protein 5.7 L Albumin 2.8 L Globulin 2.9 Albumin/Globulin Ratio 1.0 L HIV 1&2 Ag/Ab, 4th Gen Nonreactive 11/08/17 11/08/17 06:45 08:30 WBC 7.1 D RBC 4.05 Hgb 11.0 L Hct 33.0 L MCV 81.5 D MCH 27.2 MCHC 33.3 RDW 14.0 Plt Count 214 MPV 9.4 PT INR pCO2 38 pO2 112.0 H HCO3 23.5 ABG pH 7.40 ABG Total CO2 24.7 ABG O2 Saturation 99.3 H ABG O2 Content 14.6 L ABG Base Excess -1.1 ABG Hemoglobin 10.6 L ABG Carboxyhemoglobin 1.6 H POC ABG HHb (Measured) 0.7 ABG Methemoglobin 1.3 ABG O2 Capacity 14.7 L Hgb O2 Saturation 96.4 FiO2 50.0 Sodium Potassium Chloride Carbon Dioxide Anion Gap BUN Creatinine Est GFR ( Amer) Est GFR (Non-Af Amer) Random Glucose Calcium Total Bilirubin AST ALT Alkaline Phosphatase Total Protein Albumin Globulin Albumin/Globulin Ratio HIV 1&2 Ag/Ab, 4th Gen Critical Care Progress Note - Nutrition Nutrition: Nutrition Category Date Time Status NPO Diet [DIET] Diets 11/08/17 Lunch Ordered Assessment/Plan - Assessment and Plan (Free Text) Assessment: Patient seen and examined on rounds with resident, agree with note with following additions/exceptions: Pt is 22yo male with a PMH of polysubstance abuse (Heroin, ETOH, Marijuana), anxiety (on Xanax), depression (on Seroquel), and asthma who presents to ED after being found in car unresponsive possibly due to opiate overdose. Patient was transferred to ICU and intubated due to hypoxic respiratory failure, PNA, and altered mental status. This morning propofol discontinued, patient only on precedex, awake, alert, NAD , placed on CPAP trial toelrated it well RSBI 40-50, subseuqeutnly patient self extubated. Placed on 2LNC, sat 97%, RR 16-18. stable. Resp failure, hypoxic s/p extubation PNA Pneumonitis Polysubstance Abuse ?Seizure disorder Etoh Abuse FIDELINA/ARF Recommend: - supp o2 as needed, monitor resp status closely - antibiotics as per ID, Cefepime, Vanco, Azithro - check urine Lg, Strep, Procal, UCx, BCx, Sputum culture - BP control - DC IVF - repeat EEG as per neuro - Neuro follow up - monitor for sigs of opiate, EtOH withdrawal, CIWA protocol - Thiamine, Folic, MVT - GI ppx - DVT ppx, HSQ - Monitor in MICU Critical care time 35 minutes
[2017-11-08 07:39] LABS: ALBUMIN 2.8 g/dL (3.0-4.8); ALT/SGPT 48 U/L (7-56); AST/SGOT 51 U/L (17-59); BLOOD UREA NITROGEN 4 mg/dL (7-21); GFR AFRICAN-AMERICAN > 60; GFR NON-AFRICAN AMERICAN > 60
[2017-11-08] MEDS: Vancomycin 1gm in NS 250ml 1 GM/250 ML BAG IVPB SCH (07:58)
[2017-11-08] MEDS ORDERED: Multivitamin With Minerals Tab PO SCH (08:00)
[2017-11-08 08:21] VITALS: BP 125/72; TEMP 97.9; O2SAT 99
--- NOTE | 2017-11-08 08:33 | RAD ---
HISTORY: intubated COMPARISON: 11/07/2017 FINDINGS: LUNGS: Patchy opacity at right lung base new since prior examination. Possible early pneumonia. Linear atelectasis at left PLEURA: Base. CARDIOVASCULAR: Normal. OSSEOUS STRUCTURES: No significant abnormalities. VISUALIZED UPPER ABDOMEN: Normal. OTHER FINDINGS: None. IMPRESSION: Patchy opacity at right base, possible early pneumonia. Follow-up.
[2017-11-08 08:58] LABS: MEAN CELL VOLUME 81.5 fl (80.0-105.0); MEAN CORPUSCULAR HEMOGLOBIN 27.2 pg (25.0-35.0); MEAN CORPUSCULAR HGB CONC 33.3 g/dl (31.0-37.0); MEAN PLATELET VOLUME 9.4 fl (7.0-11.0); RBC 4.05 10^6/uL (3.5-6.1); WHITE BLOOD COUNT 7.1 10^3/ul (4.5-11.0)
--- NOTE | 2017-11-08 09:04 | EEG ---
DATE: TECHNICAL DESCRIPTION: This is an EEG acquired using EEG placement with 16 electrodes placed according to the 10-20 International electrode system. All electrodes were referenced to A1-A2 or P1-P2 electrodes. Continuous seizure monitoring was done with spike detections also. BACKGROUND: There is a slow 8-10 Hz posterior dominant rhythm that is non-reactive, but is symmetric and non-attenuating to eye opening. There is no other normal morphology noted. There is no normal sleep noted. There is no normal variation of waveforms. Activation maneuvers were not performed. There are no interictal epileptiform discharges. There are no clinical or subclinical seizures. IMPRESSION: This is an abnormal drowsy electroencephalogram. The lack of variation of waveforms is most likely secondary to sedation. Sleep electroencephalogram is recommended within several days. Clinical correlation is required. Anderson Fajardo MD
--- NOTE | 2017-11-08 10:28 | CP.PCM.PN ---
Subjective - Date & Time of Evaluation Date of Evaluation: 11/08/17 Time of Evaluation: 07:10 - Subjective Subjective: Neur Progress note: Pt seen and examined at bedside. No acute events overnight. Pt is extubated this morning. He is opening eyes and following commands. 12 Point ROS neg other than stated above Objective - Vital Signs/Intake and Output Vital Signs (last 24 hours): Temp Pulse Resp BP Pulse Ox 97.9 F 81 15 125/72 99 11/08/17 08:21 11/08/17 08:40 11/08/17 08:21 11/08/17 08:21 11/08/17 08:21 Intake and Output: 11/08/17 11/08/17 06:59 18:59 Intake Total 325 200 Balance 325 200 - Medications Medications: Current Medications Acetaminophen (Tylenol 650mg/20.3ml Solution Ud) 650 mg NG Q6H PRN PRN Reason: Fever >100.4 F Last Admin: 11/07/17 17:54 Dose: 650 mg Albuterol/Ipratropium (Duoneb 3 Mg/0.5 Mg (3 Ml) Ud) 3 ml IH [id number] [facility] Last Admin: 11/08/17 07:38 Dose: 3 ml Folic Acid (Folic Acid) 1 mg PO DAILY [facility] Last Admin: 11/08/17 09:22 Dose: 1 mg Heparin Sodium (Porcine) (Heparin) 5,000 units SC Q8 INDIGO PRN Reason: Protocol Last Admin: 11/08/17 05:52 Dose: 5,000 units Doxycycline Hyclate 100 mg/ (Sodium Chloride) 100 mls @ 100 mls/hr IVPB Q12 INDIGO PRN Reason: Protocol Last Admin: 11/08/17 09:21 Dose: 100 mls/hr Propofol (Diprivan) 1,000 mg in 100 mls @ 2.654 mls/hr IV .Q24H PRN; Protocol; 5 MCG/KG/MIN PRN Reason: TITRATE PER MD ORDER Last Admin: 11/08/17 09:31 Dose: 35 mcg/kg/min, 18.575 mls/hr Vancomycin HCl (Vancomycin 1gm) 1 gm in 250 mls @ 167 mls/hr IVPB Q12H INDIGO PRN Reason: Protocol Last Admin: 11/08/17 07:58 Dose: 167 mls/hr Cefepime HCl (Maxipime 2gm) 2 gm in 100 mls @ 100 mls/hr IVPB Q8 INDIGO PRN Reason: Protocol Stop: 11/11/17 10:16 Last Admin: 11/08/17 05:38 Dose: 100 mls/hr Dexmedetomidine HCl (Precedex 400mcg/100ml) 400 mcg in 100 mls @ 4.672 mls/hr IV .[id number] PRN; Protocol; 0.2 MCG/KG/HR PRN Reason: Agitation Last Admin: 11/08/17 09:22 Dose: 0.2 mcg/kg/hr, 4.672 mls/hr Lorazepam (Ativan) 2 mg IVP Q4 PRN; Protocol PRN Reason: Agitation Last Admin: 11/08/17 07:58 Dose: 2 mg Multivitamins/Minerals (Therapeutic-M Tab) 1 tab PO 0800 [facility] Last Admin: 11/08/17 07:59 Dose: 1 tab Pantoprazole Sodium (Protonix Inj) 40 mg IVP DAILY [facility] Last Admin: 11/08/17 09:21 Dose: 40 mg Thiamine HCl (Vitamin B1 Tab) 100 mg PO DAILY [facility] Last Admin: 11/08/17 09:22 Dose: 100 mg - Labs Labs: 11/08/17 08:30 11/08/17 06:00 PT 11.9 SECONDS (9.4-12.5) 11/08/17 06:00 INR 1.03 (0.93-1.08) 11/08/17 06:00 APTT 26.9 Seconds (25.1-36.5) 11/05/17 09:10 - Constitutional Appears: No Acute Distress - Eye Exam Pupil Exam: NORMAL ACCOMODATION - Neurological Exam Additional comments: Neuro exam unchanged as before. Gag and corneal reflexes intact. Assessment and Plan - Assessment and Plan (Free Text) Assessment: 22 M with pmh of polysubstance abuse presents to the ED after being found unresponsive in the car. Pt is currently intubated and sedated. Neuro consulted for suspected seizures. - EEG ordered today - EEG: performed and showed abnormal drowsy EEG consistent with sedation , no seizure activity - Wean sedation as tolerated - Medical management as per ICU - Head CT was normal - No anti seizure medications required at this time - Cont antibiotics as per ID - HOB elevation to 35' - Maintain systolic blood pressure <140 Case and Plan was reviewed and discussed with Dr Fajardo.
[2017-11-08 17:34] VITALS: PULSE 94
--- NOTE | 2017-11-08 18:53 | PN ---
DATE: 11/08/2017 SUBJECTIVE: The patient is in bed, in no acute distress, was seen early this morning in CCU 129, bed 4, intubated on a ventilator. PHYSICAL EXAMINATION: VITAL SIGNS: Temperature is 97, T max is 100.9 yesterday, blood pressure is 125/70, respiratory rate on the vent, heart rate of 98. HEENT: Reveals ET tube in place. NECK: Supple. LUNGS: Decreased breath sounds. HEART: Normal S1, S2. ABDOMEN: Soft, nontender. No rebound or guarding. LABORATORY EXAMINATION: Reveals a white count of 7.1, hemoglobin 11, and platelets of 214. Coagulation is noted. Chemistries reveals a BUN of 4, creatinine of 0.7. Procalcitonin is 3.42. Urinalysis is noted and serology reveals influenza is negative. The urine for Legionella is negative. HIV is negative. Microbiology reveals blood cultures are negative. Nares MRSA is negative. Urine cultures negative and sputum culture is pending. Review of orders reveals the patient to be on doxycycline IV, cefepime IV, and vancomycin IV. Review of the chest x-ray from this morning, 11/08/2017, patchy opacity at the right lung base. ASSESSMENT AND PLAN: A 22-year-old male seen early this morning in room 129, bed 4 with severe sepsis with respiratory failure, intubated on a ventilator with bilateral bacterial pneumonia, elevated procalcitonin in phase of acute pulmonary edema and acute substance abuse with pulmonary edema, anxiety, depression, and asthma, on doxycycline, cefepime, and vancomycin day #3 and with the sputum cultures pending and the MRSA screen is negative. We will discontinue the vancomycin and all blood cultures are negative. Mamadou Winn MD
--- NOTE | 2017-11-09 00:36 | PN ---
DATE: 11/08/2017 PULMONARY AND CRITICAL CARE PROGRESS NOTE REFERRING PHYSICIAN: Dr. Mitzi Berger. SUBJECTIVE: He is extubated and lying in the bed, still confused. Has upper extremity restraint. Girlfriend is at bedside. Understands what happened to him, admits to using multiple substances, cocaine, marijuana, and benzodiazepine. Has some cough. No nausea, no abdominal pain. No leg pain or leg swelling. Wants to go home. OBJECTIVE: GENERAL: In no acute distress. VITAL SIGNS: Temperature is 98, heart rate is 98, respiratory rate is 16, and blood pressure is 125/72. HEENT: Moist mucous membrane. Crowded airway. NECK: Supple. No JVD. LUNGS: Scattered rhonchi. HEART: S1 and S2. ABDOMEN: Soft, nontender. No organomegaly. EXTREMITIES: There is no edema. NEUROLOGIC: Awake and alert. Follows simple commands. LABORATORY DATA: Shows hemoglobin 11.0, hematocrit 33.0, WBC 7.1, and platelet is 214. INR 1.03. ABG showed pH 7.40, pCO2 of 38, and O2 of 112, this is on room air oxygen. Sodium 141, potassium 3.6, chloride 109, bicarbonate 26, BUN 4, creatinine 0.7, glucose 84, calcium 9.0, AST 51, ALT 48, alkaline phosphatase is 59, albumin 2.8, and procalcitonin assay 3.42. Chest x-ray this morning shows a patchy opacity of the right base, possibly early pneumonia. MEDICATIONS: He is on Ativan 2 mg q. 4 hours p.r.n. for agitation, doxycycline 100 mg twice a day, DuoNeb q. 6 hours, folic acid 1 mg daily, heparin 5000 units subcutaneously q. 8 hours, cefepime 2 gm IV q. 8 hours, Protonix 40 mg daily, multivitamins daily, Tylenol p.r.n., vitamin B 100 mg daily, and Xanax 0.5 mg twice a day. IMPRESSION AND PLAN: Drug overdose with respiratory failure, withdrawal seizures, right lower lobe pneumonia, liberated from the ventilator. Continue antibiotics. Keep head at 45 degrees. Gastric and deep venous thrombosis prophylaxis. Aspiration precaution. Follow up labs in the morning. Fall precaution. Thank you, and we will follow with you. Serg Clifton MD
== END 2017-11-08 19:06 | disposition left against medical advice (07) | DRG 917 ==
LOC: ED 09:10 → ERH 09:50 → ICU 12:09 → CCU 11-07 15:04
PROVIDERS: ADMIT Hospitalist; ATTEND Internal Medicine
PROC: 5A1945Z Respiratory Ventilation, 24-96 Consecutive Hours (ICD-10-PCS; principal; 2017-11-06)
PROC: 0BH17EZ Insertion of Endotracheal Airway into Trachea, Via Natural or Artificial Opening (ICD-10-PCS; 2017-11-06)
DX: T40.601A Poisoning by unspecified narcotics, accidental (unintentional), initial encounter (principal); J69.0 Pneumonitis due to inhalation of food and vomit; J96.91 Respiratory failure, unspecified with hypoxia; R65.20 Severe sepsis without septic shock; A41.9 Sepsis, unspecified organism; N17.9 Acute kidney failure, unspecified; Z99.11 Dependence on respirator [ventilator] status; F17.200 Nicotine dependence, unspecified, uncomplicated; F12.10 Cannabis abuse, uncomplicated; F11.10 Opioid abuse, uncomplicated; F10.10 Alcohol abuse, uncomplicated; F43.0 Acute stress reaction; J45.909 Unspecified asthma, uncomplicated; F32.9 Major depressive disorder, single episode, unspecified; R31.9 Hematuria, unspecified; D64.9 Anemia, unspecified; E83.51 Hypocalcemia; F41.9 Anxiety disorder, unspecified; R73.9 Hyperglycemia, unspecified; R56.9 Unspecified convulsions; Y90.0 Blood alcohol level of less than 20 mg/100 ml; Z78.1 Physical restraint status

== ENCOUNTER 2017-11-11 09:39 | Emergency (ER) | payer BC ==
[2017-11-11 09:41] VITALS: BMI 23.6
[2017-11-11 10:28] LABS: BASO # 0.11 K/mm3 (0.0-2.0); BASO % 1.1 % (0.0-3.0); EOS # 0.6 (0.0-0.7); EOS % 5.8 % (1.5-5.0); GRAN # 6.21 (1.4-6.5); GRAN % 61.7 % (50.0-68.0); HEMOGLOBIN 12.7 g/dL (14.0-18.0); LYMPH # 2.2 (1.2-3.4); LYMPH % 21.9 % (22.0-35.0); MEAN CORPUSCULAR HEMOGLOBIN 27.6 pg (25.0-35.0); MEAN CORPUSCULAR HGB CONC 33.7 g/dl (31.0-37.0); MEAN PLATELET VOLUME 9.4 fl (7.0-11.0); MONO % 9.5 % (1.0-6.0); RBC 4.6 10^6/uL (3.5-6.1); RED CELL DISTRIBUTION WIDTH 14.2 % (11.5-14.5); WHITE BLOOD COUNT 10.1 10^3/ul (4.5-11.0)
[2017-11-11 10:30] LABS: URINE APPEARANCE CLEAR (CLEAR); URINE BILIRUBIN SMALL (NEGATIVE); URINE BLOOD NEGATIVE (NEGATIVE); URINE COLOR YELLOW (YELLOW); URINE GLUCOSE (UA) NEGATIVE (NEGATIVE); URINE LEUKOCYTE ESTERASE NEGATIVE Leu/uL (NEGATIVE); URINE PROTEIN 30 mg/dL (<30 mg/dL); URINE UROBILINOGEN 0.2 E.U./dL (<1 E.U./dL)
[2017-11-11 10:36] LABS: URINE AMORPHOUS SEDIMENT FEW; URINE BACTERIA LARGE (NEG); URINE RBC 0 - 2 /hpf (0-2)
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
[2017-11-11 10:49] LABS: ALB/GLOB RATIO 1.2 (1.1-1.8); ALT/SGPT 97 U/L (7-56); AST/SGOT 110 U/L (17-59); BLOOD UREA NITROGEN 10 mg/dL (7-21); CALCIUM 9.5 mg/dL (8.4-10.5); GFR AFRICAN-AMERICAN > 60; GFR NON-AFRICAN AMERICAN > 60
[2017-11-11 11:14] LABS: BARBITURATES, UR NEGATIVE (NEGATIVE); BENZODIAZEPINES, UR POSITIVE (NEGATIVE); OPIATES, UR POSITIVE (NEGATIVE); PHENCYCLIDINE, UR NEGATIVE (NEGATIVE)
--- NOTE | 2017-11-11 11:23 | RAD ---
HISTORY: overdose COMPARISON: 11/08/2017 FINDINGS: LUNGS: No active pulmonary disease. PLEURA: No significant pleural effusion identified, no pneumothorax apparent. CARDIOVASCULAR: Normal. OSSEOUS STRUCTURES: No significant abnormalities. VISUALIZED UPPER ABDOMEN: Normal. OTHER FINDINGS: None. IMPRESSION: No active disease.
[2017-11-11 11:28] LABS: ACETAMINOPHEN < 10.0 ug/ml (10.0-20.0); SALICYLATE < 1 mg/dL (2.0-20.0)
[2017-11-11 13:08] VITALS: RESP 18
--- NOTE | 2017-11-11 17:28 | CARD ---
APPROVED REPORT EKG Measurement Heart [id number] <Conclusion> Sinus tachycardia Cannot rule out Anterior infarct, age undetermined vs lead misplacement Abnormal ECG
[2017-11-11 18:56] VITALS: BP 118/78; PULSE 88; O2SAT 99
== END 2017-11-11 18:56 | disposition home or self-care (01) ==
LOC: ED 09:39
DX: T50.991A Poisoning by other drugs, medicaments and biological substances, accidental (unintentional), initial encounter (principal); F19.10 Other psychoactive substance abuse, uncomplicated; Y92.89 Other specified places as the place of occurrence of the external cause
CPT/HCPCS: 71045; 80053; 81001; 85025; 93005; 96372; 99284; G0480; J1630; J2060

== ENCOUNTER 2018-01-22 02:25 | Emergency (ER) | payer BC ==
[2018-01-22 02:26] VITALS: BMI 23.6
[2018-01-22] MEDS ORDERED: Sodium Chloride 0.9% 1,000 ML IV SCH ×2 (03:00→06:52)
--- NOTE | 2018-01-22 03:17 | ED PDOC ---
Arrival/HPI - General Chief Complaint: Substance Abuse Time Seen by Provider: 01/22/18 02:29 Historian: Patient EM Caveat: Uncooperative - History of Present Illness Narrative History of Present Illness (Text): 01/22/18 03:08 23 year old male, whose past medical history includes asthma, anxiety, depression, and substance abuse, presents to the emergency department for via [place] for abnormal behavior. Patient was found in his car with abnormal behavior. He is mumbling and unable to formulate sentences. Patient is combative with staff and was restrained for the safety of the staff and himself. HPI and ROS limited due to patient being uncooperative. Past Medical History - Provider Review Nursing Documentation Reviewed: Yes - Past History Past History: Non-Contributing - Infectious Disease Hx of Infectious Diseases: None - Cardiac Hx Cardiac Disorders: No Hx Hypertension: No - Pulmonary Hx Asthma: Yes - Neurological HX Cerebrovascular Accident: No Hx Seizures: No - Hematological/Oncological Hx Cancer: No - Musculoskeletal/Rheumatological Hx Falls: No - Genitourinary/Gynecological Hx Sexually Transmitted Diseases: No - Psychiatric Hx Anxiety: Yes Hx Depression: Yes Hx Substance Use: Yes - Anesthesia Hx Anesthesia: No Hx Anesthesia Reactions: No Hx Malignant Hyperthermia: No - Suicidal Assessment Feels Threatened In Home Enviroment: No Family/Social History - Physician Review Nursing Documentation Reviewed: Yes Family/Social History: No Known Family HX Smoking Status: Heavy Smoker > 10 Cigarettes Daily Hx Alcohol Use: Yes Hx Substance Use: Yes Substance used: Whatever is available per patient. Allergies/Home Meds Allergies/Adverse Reactions: Allergies banana Allergy (Verified 11/11/17 10:01) RASH fruits Allergy (Uncoded 11/11/17 10:01) RASH Home Medications: Home Meds Medication Instructions Recorded Confirmed QUEtiapine [SEROquel] 150 mg PO HS 11/23/14 11/11/17 Amoxicillin 500 mg PO TID 11/11/17 11/11/17 Benzonatate [Tessalon Perle] 1 tab PO TID 11/11/17 11/11/17 Buspirone HCl [Buspirone HCl] 15 mg PO TID 11/11/17 11/11/17 Escitalopram [Lexapro] 1 tab PO DAILY 11/11/17 11/11/17 Ibuprofen [Motrin Tab] 800 mg PO TID 11/11/17 11/11/17 Lamotrigine [Lamictal] 1 tab PO DAILY 11/11/17 11/11/17 Naltrexone [Revia] 50 mg PO HS 11/11/17 11/11/17 Propranolol [Inderal] 10 mg PO BID 11/11/17 11/11/17 cloNIDine [clonidine HCl] 0.2 mg PO Q6 11/11/17 11/11/17 traZODone [Desyrel] 1 tab PO HS 11/11/17 11/11/17 Review of Systems - Physician Review All systems were reviewed & negative as marked: Yes - Review of Systems Systems not reviewed;Unavailable: Uncooperative Physical Exam Vital Signs Reviewed: Yes Vital Signs Pulse Resp BP Pulse Ox 01/22/18 11:13 79 18 119/67 100 01/22/18 10:40 81 18 119/67 100 01/22/18 07:08 88 98/54 L 97 01/22/18 06:52 91 H 20 84/50 L 97 01/22/18 05:33 91 H 16 94 L 01/22/18 05:23 104 H 20 96 01/22/18 02:41 144 H 24 100/65 99 Blood Pressure: Normal Pulse: Tachycardic Respiratory Rate: Normal Appearance: Positive for: Well-Appearing, Non-Toxic, Comfortable Pain Distress: None Mental Status: Positive for: Alert and Oriented X 3 - Systems Exam Head: Present: Atraumatic, Normocephalic Pupils: Present: PERRL Extroacular Muscles: Present: EOMI Conjunctiva: Present: Normal Mouth: Present: Moist Mucous Membranes Neck: Present: Normal Range of Motion Respiratory/Chest: Present: Clear to Auscultation, Good Air Exchange. No: Respiratory Distress, Accessory Muscle Use Cardiovascular: Present: Regular Rate and Rhythm, Normal S1, S2. No: Murmurs Abdomen: No: Tenderness, Distention, Peritoneal Signs Back: Present: Normal Inspection Upper Extremity: Present: Normal Inspection. No: Cyanosis, Edema Lower Extremity: Present: Normal Inspection. No: Edema Neurological: Present: GCS=15, CN II-XII Intact, Speech Normal Skin: Present: Warm, Dry, Normal Color. No: Rashes Psychiatric: Present: Alert, Other (Confused/animated ) Medical Decision Making ED Course and Treatment: 01/22/18 02:35 Impression: 23 year old male presents for abnormal behavior. HPI and ROS limited due to patient being uncooperative. Plan: -- CT head w/o contrast -- Labs -- EKG -- Chest X-Ray -- IV Fluids -- Urinary Catheter Insertion -- Restraint/Seclusion 258 -- Urinalysis -- Reassess and disposition Prior Visits: Notes and results from previous visits were reviewed. Patient was last seen in the emergency department on 11/11/17 presents for outburst at home and self- inflicted wound. Patient was discharged. Progress Notes: Patient was being violent and combative with the staff. Patient was restrained for the safety of the staff and for himself. - Lab Interpretations Lab Results: 01/22/18 03:20 01/22/18 03:20 Lab Results 01/22/18 03:20: Alcohol, Quantitative < 10 01/22/18 03:20: Salicylates < 1 L, Acetaminophen < 10.0 L 01/22/18 03:20: Urine Opiates Screen Positive H, Urine Methadone Screen Negative , Ur Barbiturates Screen Negative, Ur Phencyclidine Scrn Negative, Ur Amphetamines Screen Negative, U Benzodiazepines Scrn Negative, U Oth Cocaine Metabols Negative, U Cannabinoids Screen Negative 01/22/18 03:20: Sodium 144, Potassium 3.4 L, Chloride 105, Carbon Dioxide 26, Anion Gap 16, BUN 12, Creatinine 1.0, Est GFR ( Amer) > 60, Est GFR (Non- Af Amer) > 60, Random Glucose 110, Calcium 9.0, Magnesium 1.7, Total Bilirubin 0.3, AST 20, ALT 24, Alkaline Phosphatase 55, Total Protein 7.0, Albumin 4.0, Globulin 2.9, Albumin/Globulin Ratio 1.4 01/22/18 03:20: Urine Color Yellow, Urine Appearance Sl cloudy, Urine pH 6.0, Ur Specific [place] >= 1.030, Urine Protein 30 H, Urine Glucose (UA) Negative, Urine Ketones Trace H, Urine Blood Negative, Urine Nitrate Negative, Urine Bilirubin Small H, Urine Urobilinogen 0.2, Ur Leukocyte Esterase Trace H, Urine RBC 0 - 2, Urine WBC 2 - 5, Ur Epithelial Cells 1 - 3, Urine Bacteria Few 01/22/18 03:20: WBC 11.6 H, RBC 4.95, Hgb 13.4 L, Hct 39.1 L, MCV 79.0 L D, MCH 27.1, MCHC 34.3, RDW 12.8, Plt Count 262, MPV 11.2 H, Gran % 59.1, Lymph % (Auto ) 30.1, [place] % (Auto) 7.3 H, Eos % (Auto) 3.2, Baso % (Auto) 0.3, Gran # 6.84 H , Lymph # (Auto) 3.5 H, [place] # (Auto) 0.9 H, Eos # (Auto) 0.4, Baso # (Auto) 0.04 I have reviewed the lab results: Yes - RAD Interpretation Radiology Orders: 01/22/18 02:50 CHEST PORTABLE [RAD] Stat - EKG Interpretation Interpreted by ED Physician: Yes Type: 12 lead EKG - Medication Orders Current Medication Orders: Discontinued Medications Sodium Chloride (Sodium Chloride 0.9%) 1,000 mls @ 80 mls/hr IV .[id number] INDIGO Last Admin: 01/22/18 05:21 Dose: Not Given Non-Admin Reason: Patient Refused Sodium Chloride (Sodium Chloride 0.9%) 1,000 mls @ 1,000 mls/hr IV .Q1H INDIGO Last Admin: 01/22/18 06:55 Dose: 1,000 mls/hr eMAR Start Stop Document 01/22/18 06:55 (Rec: 01/22/18 06:56 [facility]-[id number]) Intravenous Solution Start Date 01/22/18 Start Time 06:55 Ziprasidone (Geodon Inj) 10 mg IM STAT STA PRN Reason: Protocol Stop: 01/22/18 03:30 Last Admin: 01/22/18 03:38 Dose: 10 mg IM Administration Charges Document 01/22/18 03:38 HARSH (Rec: 01/22/18 03:38 HARSH [id number]) Injection Site MAR Injection Site Left Deltoid Charges for Administration # of IM Administrations 1 - Transfer of Care Patient signed out to Dr:: preethi luke and artemio - Zainaibtom Statement The provider has reviewed the documentation as recorded by the Sarabjit Jackson Provider Scribe Attestation: All medical record entries made by the Zainaibtom were at my direction and personally dictated by me. I have reviewed the chart and agree that the record accurately reflects my personal performance of the history, physical exam, medical decision making, and the department course for this patient. I have also personally directed, reviewed, and agree with the discharge instructions and disposition. Disposition/Present on Arrival - Present on Arrival Any Indicators Present on Arrival: No History of DVT/PE: No History of Uncontrolled Diabetes: No Urinary Catheter: No History of Decub. Ulcer: No History Surgical Site Infection Following: None - Disposition Have Diagnosis and Disposition been Completed?: Yes Diagnosis: Opiate abuse, episodic Disposition: HOME/ ROUTINE Disposition Time: 07:00 Condition: GOOD Referrals: [facility], [Non-Staff] - Follow up with primary Forms: [employer] (Setswana)
[2018-01-22 03:29] LABS: BASO # 0.04 K/mm3 (0.0-2.0); BASO % 0.3 % (0.0-3.0); EOS # 0.4 (0.0-0.7); EOS % 3.2 % (1.5-5.0); GRAN # 6.84 (1.4-6.5); GRAN % 59.1 % (50.0-68.0); HEMOGLOBIN 13.4 g/dL (14.0-18.0); LYMPH # 3.5 (1.2-3.4); LYMPH % 30.1 % (22.0-35.0); MEAN CORPUSCULAR HEMOGLOBIN 27.1 pg (25.0-35.0); MEAN CORPUSCULAR HGB CONC 34.3 g/dl (31.0-37.0); MEAN PLATELET VOLUME 11.2 fl (7.0-11.0); MONO # 0.9 (0.1-0.6); MONO % 7.3 % (1.0-6.0); RBC 4.95 10^6/uL (3.5-6.1); RED CELL DISTRIBUTION WIDTH 12.8 % (11.5-14.5); WHITE BLOOD COUNT 11.6 10^3/ul (4.5-11.0)
[2018-01-22 03:39] LABS: URINE BILIRUBIN SMALL (NEGATIVE); URINE BLOOD NEGATIVE (NEGATIVE); URINE GLUCOSE (UA) NEGATIVE (NEGATIVE); URINE LEUKOCYTE ESTERASE TRACE Leu/uL (NEGATIVE); URINE PROTEIN 30 mg/dL (<30 mg/dL); URINE UROBILINOGEN 0.2 E.U./dL (<1 E.U./dL)
[2018-01-22 03:47] LABS: ALB/GLOB RATIO 1.4 (1.1-1.8); GFR AFRICAN-AMERICAN > 60; GFR NON-AFRICAN AMERICAN > 60
[2018-01-22 03:48] LABS: ACETAMINOPHEN < 10.0 ug/ml (10.0-20.0); SALICYLATE < 1 mg/dL (2.0-20.0)
[2018-01-22 03:49] LABS: ALT/SGPT 24 U/L (7-56); AST/SGOT 20 U/L (17-59); BLOOD UREA NITROGEN 12 mg/dL (7-21)
[2018-01-22 03:55] LABS: BENZODIAZEPINES, UR NEGATIVE (NEGATIVE); PHENCYCLIDINE, UR NEGATIVE (NEGATIVE)
[2018-01-22 04:03] LABS: BARBITURATES, UR NEGATIVE (NEGATIVE); OPIATES, UR POSITIVE (NEGATIVE)
[2018-01-22 04:09] LABS: URINE APPEARANCE SL CLOUDY (CLEAR); URINE COLOR YELLOW (YELLOW)
[2018-01-22 04:16] LABS: URINE BACTERIA FEW (NEG); URINE RBC 0 - 2 /hpf (0-2)
--- NOTE | 2018-01-22 09:16 | RAD ---
HISTORY: pes COMPARISON: 11/11/2017 FINDINGS: LUNGS: No active pulmonary disease. PLEURA: No significant pleural effusion identified, no pneumothorax apparent. CARDIOVASCULAR: Normal. OSSEOUS STRUCTURES: No significant abnormalities. VISUALIZED UPPER ABDOMEN: Normal. OTHER FINDINGS: None. IMPRESSION: No active disease. No significant interval change compared to the prior examination(s).
[2018-01-22 10:41] VITALS: BP 119/67; RESP 18; O2SAT 100
[2018-01-22 11:14] VITALS: PULSE 79
--- NOTE | 2018-01-22 13:03 | CARD ---
APPROVED REPORT EKG Measurement Heart [id number] [id number] <Conclusion> Sinus tachycardia Otherwise normal ECG
== END 2018-01-22 11:13 | disposition home or self-care (01) ==
LOC: ED 02:25
DX: F11.10 Opioid abuse, uncomplicated (principal); F41.9 Anxiety disorder, unspecified
CPT/HCPCS: 71045; 80053; 81001; 83735; 85025; 87086; 93005; 96372; 99285; G0480; J3486; J7040

== ENCOUNTER 2018-05-07 14:15 | Emergency (ER) | payer BC ==
[2018-05-07 14:29] VITALS: BMI 24.3
[2018-05-07] MEDS ORDERED: TDAP Vaccine 0.5 mL Syr IM ONE (14:59)
[2018-05-07] MEDS ORDERED: Lidocaine 1% Inj (20ml) IJ STA (15:20)
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
[2018-05-07 16:25] VITALS: BP 99/61
--- NOTE | 2018-05-07 16:32 | PCM.PROC ---
Procedures Attestation:: I certify that I have explained the specified Operation(s) or Procedure(s), risks, benefits and reasonable alternatives to the Patient and/or other person responsible. The opportunity was given to ask questions and all questions answered - Laceration with EPI simple, single layer stellate irrigated extensively scalp 4-0 other simple, interrupted other Site: scalp Side (if applicable): right Size (cm): 5 Description: stellate Depth: simple, single layer Anesthesia used: lidocaine 1%, with EPI Anesthesia technique: local infiltration Amount (mLs): 5 Pre-repair: irrigated extensively, deep structures intact Skin layer closed with: other (ethilon) Size: 4-0 Number of sutures: 4 Technique: simple, interrupted Subcutaneous layer closed with: vicryl Size: 4-0 Number of sutures: 1 Technique: running
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
[2018-05-07 17:34] VITALS: PULSE 97; RESP 19; TEMP 98; O2SAT 98
== END 2018-05-07 17:34 | disposition home or self-care (01) ==
LOC: ED 14:15
DX: S01.01XA Laceration without foreign body of scalp, initial encounter (principal); Y04.8XXA Assault by other bodily force, initial encounter; Y93.01 Activity, walking, marching and hiking; Y92.481 Parking lot as the place of occurrence of the external cause; Z23 Encounter for immunization; F17.210 Nicotine dependence, cigarettes, uncomplicated

== ENCOUNTER 2018-07-30 21:14 | Emergency (ER) | payer BC ==
[2018-07-30 21:31] VITALS: BMI 23.5
[2018-07-30 21:37] VITALS: RESP 18; O2SAT 99
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
[2018-07-31 00:33] VITALS: BP 132/71; PULSE 92; TEMP 98.8
== END 2018-07-31 00:33 | disposition home or self-care (01) ==
LOC: ED 21:14
DX: F10.10 Alcohol abuse, uncomplicated (principal)